=== PATIENT | female | born 1950 | race Caucasian/White ===

== ENCOUNTER → 2017-08-06 14:39 | Outpatient (CLI) | payer MEDICARE, BC, SELFPAY ==
[2017-08-06 14:44] LABS: Lyme Ab Screen Interpretation REF LAB
[2017-08-06 15:49] LABS: Absolute Lymphocyte Count 1.27 X10^3/ul (0.83-4.51); Absolute Neutrophil Count 2.2 X10^3/uL (2.0-7.7); Basophil# 0.02 X10^3/uL; Basophil% 0.5 % (0-1); Eosinophil# 0.05 X10^3/uL; Eosinophils% 1.3 % (0-5); Hematocrit 37.1 % (37-47); Hemoglobin 12.1 g/dl (12.0-15.0); Lymphocyte # 1.27 X10^3/ul (4.0); Lymphocyte % 31.9 % (19-41); Mean Corp Hgb Conc 32.6 g/gl (32-36); Mean Corpuscular Hgb 29.6 pg (27.0-32.0); Mean Corpuscular Volume 90.7 fL (81-99); Monocyte% 10.1 % (0-10); Neutrophil # 2.24 X10^3/uL (2.7-7.7); Neutrophil % 56.2 % (47-70); Platelet Count 126 K/mm3 (150-450); RBC Distribution Width SD 42.7 fl (35.1-43.9); Red Blood Count 4.09 M/mm3 (4.2-5.4)
[2017-08-06 15:50] LABS: POSITIVE COUNT NO; POSITIVE DIFFERENTIAL NO; POSITIVE MORPHOLOGY NO
[2017-08-06 16:09] LABS: Erythrocyte Sedimentation Rate 8 mm/hr (0-30)
[2017-08-06 16:16] LABS: CRP < 2.90 mg/L (0.0-3.0); Ferritin 81 ng/mL (8-252)
[2017-08-07 08:38] LABS: Vitamin B12 408 pg/mL (211-911)
[2017-08-09 09:57] LABS: Lyme Scn Total Ab w/Rflx <0.91 ISR (0.00-0.90)
== END ==
PROVIDERS: Family Provider Family Medicine; PCP Family Medicine; Visit Provider Family Medicine
DX: R20.2 Paresthesia of skin (principal); M79.1 Myalgia
CPT/HCPCS: 36415; 82607; 82728; 83735; 85025; 85652; 86140; 86618

== ENCOUNTER 2017-11-30 00:48 | Emergency (ER) | payer MEDICARE, BC, SELFPAY ==
[2017-11-30 00:49] VITALS: BP 154/78; PULSE 89; RESP 18; TEMP 36.9; O2SAT 98
--- NOTE | 2017-11-30 01:19 | ED.DEP ---
ED Disposition - Plan for ED Patient: Chief Complaint: Lower Extremity Injury Instructions: Total Knee Replacement Referrals: Joe Hollingsworth MD [Primary Care Provider] -
--- NOTE | 2017-11-30 01:30 | ED.VISSUMM ---
- ER Visit Summary Date of Service: 11/30/17 Chief Complaint: Right leg swelling History of Present Illness: The patient is a 67 F presenting with right leg swelling which started today. She had total knee replacement on November 13 at [facility]. She was on Lovenox. She finished this course of medication 3 days ago. Today she noted increasing swelling in her calf. She denies pain. Denies chest pain or shortness of breath. Denies fever. Her knee is healing well. Denies other complaints. Physical Examination: Vitals are stable. Patient is afebrile. Alert no acute distress. HEENT exam is unremarkable. Lungs are clear and equal bilaterally. Heart is regular rate and rhythm. Extremities right knee incision clean dry intact. Active full range of motion. No erythema or warmth. Mild calf swelling. Normal DP/PT pulses. Skin is warm and dry. No focal neurologic deficit. Remainder of exam is unremarkable. Emergency Department Course and Treatment: Venous Doppler is not available at this time of day. Patient was given Lovenox subcutaneously. She was given an order form for an outpatient venous Doppler in the morning. She is advised to follow-up with her primary care physician. Advised return ED if worsening complaints. Disposition: Discharge home Impression: Right lower extremity swelling This note was generated with [employer]akick dictation software. It may contain incorrect words, spelling, and punctuation that were not noted in review of the chart prior to signing ED Disposition - Plan for ED Patient: Chief Complaint: Lower Extremity Injury Instructions: Total Knee Replacement Referrals: Joe Hollingsworth MD [Primary Care Provider] -
--- NOTE | 2017-11-30 01:33 | ED.DCSUM_ITS ---
- ER Visit Summary Date of Service: 11/30/17 Chief Complaint: Right leg swelling History of Present Illness: The patient is a 67 F presenting with right leg swelling which started today. She had total knee replacement on November 13 at [facility]. She was on Lovenox. She finished this course of medication 3 days ago. Today she noted increasing swelling in her calf. She denies pain. Denies chest pain or shortness of breath. Denies fever. Her knee is healing well. Denies other complaints. Physical Examination: Vitals are stable. Patient is afebrile. Alert no acute distress. HEENT exam is unremarkable. Lungs are clear and equal bilaterally. Heart is regular rate and rhythm. Extremities right knee incision clean dry intact. Active full range of motion. No erythema or warmth. Mild calf swelling. Normal DP/PT pulses. Skin is warm and dry. No focal neurologic deficit. Remainder of exam is unremarkable. Emergency Department Course and Treatment: Venous Doppler is not available at this time of day. Patient was given Lovenox subcutaneously. She was given an order form for an outpatient venous Doppler in the morning. She is advised to follow-up with her primary care physician. Advised return ED if worsening compl aints. Disposition: Discharge home Impression: Right lower extremity swelling This note was generated with [employer] dictation software. It may contain incorrect words, spelling, and punctuation that were not noted in review of the chart prior to signing ED Disposition - Plan for ED Patient: Chief Complaint: Lower Extremity Injury Instructions: Total Knee Replacement Referrals: Joe Hollingsworth MD [Primary Care Provider] -
[2017-11-30] MEDS: Enoxaparin 60 MG/0.6 ML Syringe SC (01:39)
[2017-11-30 01:40] VITALS: BP 127/73; PULSE 75; RESP 16; O2SAT 98
== END 2017-11-30 01:45 | disposition home or self-care (01) ==
LOC: ED 01:42
PROVIDERS: Emergency Provider Emergency Medicine; Family Provider Family Medicine; PCP Family Medicine
DX: M79.89 Other specified soft tissue disorders (principal); Z96.651 Presence of right artificial knee joint
CPT/HCPCS: 96372; 99282

== ENCOUNTER → 2017-12-01 13:33 | Outpatient (CLI) | payer MEDICARE, BC, SELFPAY ==
--- NOTE | 2017-12-01 13:39 | VDLE_ITS ---
Reason For Study: LEG SWELLING RIGHT LEFT GSV is normal. CFV is compressible, spontaneous, phasic, CFV is compressible, spontaneous, phasic, competent, and demonstrates normal competent and demonstrates normal augmentation. augmentation. FV is compressible, spontaneous, phasic, competent and demonstrates normal augmentation. POP V is compressible, spontaneous, phasic, competent and demonstrates normal augmentation. T/P Trunk is compressible. PTV is compressible. RT PerV is compressible. Procedure Exam performed in department. A preliminary report was called and/or faxed to Dr. Urena. Interpretation Summary Deep veins of the right lower extremity are patent and compressible segmentally. There is no evidence of right lower extremity deep vein thrombosis. Valvular competence appears intact within the proximal deep venous system on the right . The right greater saphenous vein appears patent and compressible segmentally. Ordering Physician: Tory Wetzel Referring Physician: Kenji Hollingsworth MD Performed By: Kristan Ortiz RVT
== END ==
PROVIDERS: Family Provider Family Medicine; PCP Family Medicine; Referring Provider Emergency Medicine; Visit Provider Emergency Medicine
DX: M79.89 Other specified soft tissue disorders (principal)
CPT/HCPCS: 93971

== ENCOUNTER 2017-12-16 14:00 | Outpatient (RCR) | payer MEDICARE, BC, SELFPAY ==
--- NOTE | 2017-11-24 16:41 | HP.PTEVAL ---
Patient's Visit Information CLARK MEJIA is a 67 year old F referred to Physical Therapy by JAMAAL TOVAR with a diagnosis of R Total Knee Replacement. Date of Evaluation: 11/24/17 Physical Therapist: Carolann Fine - Visit Plan Frequency: 3x /Week Duration: 3 Weeks Plan: Focus on R hip and knee ROM, all LE strength, neuromuscular re-education, correct gait form and negotiating stairs reciprocally. - Subjective Subjective: R TKA 11/13/17 no problems. Been doing HEP including heel slides, quad sets, SLR, knee ext., marching, glute squeezes every day. Low back and butt are sore from sitting. Comfortable sleeping in recliner first couple days. Has been sleeping in bed at night for about a week unless cannot get comfortable. Pain is not as bad has expected. No pain currently a little tightness on both sides of knee, still swollen and a little numb just around knee. Worst 6/10; described as dull and achy. Massage helps, icing, elevating. No longer taking pain medication. Pain does not wake up pt. at night. Using 4 point walker in public and at at home. Using cane for going up and down stairs 8 steps in the house and into the house. Stairs going well, getting faster every day. Every once and awhile feel unsteady so hold on to things. 5 days ago lost balance sitting down to lowered couch, fell back into couch and hit R thigh on frame, found bruise/hematoma on R thigh probably due to blood thinners; did not cause pain. Physician restriction WBAT. Able to cook, but takes breaks. Hasn't cleaned yet. Able to stand about 10 minutes before tired. Shower and dress I. Able to get in and out of SUV I. Very active. Goals: bicycling, hiking, walking long distances, bird watching, gardening. No signficant PMH. No daily medications. Occasionally take Asprin for arthritis; yoga and aquatherapy. - Objective Gait: with 4 point walker decreased kaden; with 4 wheeled walker able to increase kaden to near normal, R toe pointed inward, decreased knee flex., decreased heel rocker. Posture: Forward trunk flexion when walking unless reminded. Stairs: ascend/descend step to pattern with 1 HR and single point cane. AROM: LLE WNL, R knee flex with overpressure 97 degreees, R knee ext. with overpressure lack 19 degrees from neutral. Able to heel and toe raise without UE. Balance: 15 seconds SL on L, 7 seconds modified SL on R. Strength: L hip flex. and ext. 4+/5, L knee and ankle 5/5, R ankle 4/5; did not test R hip/knee due to ROM limitations and pain. Palation: no areas of tenderness. Incision: steri strips covering incision; no signs of infection, mild swelling and ecchymosis present. - Goals Goal 1:: Pt. will be I with HEP and progressions. Goal Time Frame: 2-4 Weeks Goal 2:: Pt. will increase R knee extension to 0 degrees. Goal Time Frame: 4-6 Weeks Goal 3:: Pt. will increase R knee flexion to 130 degrees. Goal Time Frame: 4-6 Weeks Goal 4:: Pt. will ambulate 300' with good form and no assistive device. Goal Time Frame: 4-6 Weeks Goal 5:: Pt. will negotiate 1 flight of 8'' stairs reciprocally using 1 or less hand rail and no assistive device. Goal Time Frame: 4-6 Weeks Goal 6:: Pt. will demonstrate R hip and knee strength to at least 4/5. Goal Time Frame: 4-6 Weeks - Rehabilitation Potential Physical Therapy Diagnosis: Pt. presents with hypomobility. Decreased hip and knee ROM and strength in addition to soft tissue limitations from surgery limiting pt. from full pain free functional mobility and activity without an assistive device. Rehabilitation Potential: Excellent - Anticipated Interventions Patient/Client Instruction: Educate patient on: Condition For the Purpose of:: To decrease swelling/inflammation, To increase ROM, To improve muscle performance and motor function, To improve ability to perform ADL's, To improve gait and locomotor functions, To increase flexibility/ROM, To improve endurance, To improve balance, To improve safety with gait Therapeutic Exercise to Include: Strength training, Power training, Endurance training, Balance training, Coordination, Agility training, Body mechanics, Postural training, Flexibilty training, Gait and locomotor training, Passive ROM, Active ROM For the Purpose of:: To decrease swelling/inflammation, To increase ROM, To improve nutrient delivery to tissue, To improve ability to perform ADL's, To increase tolerance to activity/condition/position, To improve performance and independence with ADL's, To improve gait and locomotor functions, To increase flexibility/ROM, To improve endurance, To improve balance, To improve safety with gait, To assume or resume ADL's Functional electric stimulation: Yes TENS: Yes Cryotherapy (ice pack, ice massage): Yes Thermo therapy (hot pack): Yes Ultrasound (thermal/non thermal): No For the Purpose of:: To decrease pain, To improve nutrient delivery to tissue, To improve muscle performance and motor function Thank you for the opportunity to evaluate your patient. For Medicare and Medicare HMO plans, please review the plan of care and approve it. It will need to be FAXED BACK to us at [phone] for Medicare purposes. Please let me know if there are questions or concerns regarding this plan of care. Physician Signature: Date:
--- NOTE | 2017-12-16 14:33 | HP.PTREVAL_ITS ---
JAMAAL TOVAR, It has been my pleasure to treat CLARK MEJIA over the last 10 visits for R Total Knee Replacement. Please see the progress note below for an update on the physical therapy plan of care! Subjective: The knee feels like its on hold secondary to the sciatica. its been bad for about 2 weeks- has been doing chiro and stretching. Feels that the leg is just really stiff and cramping. Yesterday and today feel like things are more loosening up. Is getting more feeling. Is trying to stay on top of the exercises. Objective/Function: Gait: slightly antalgic with decreased stance on the right le with poor heel strike secondary to ROM. Posture:FH, RS- can correct with VC's Stairs: asc/desc 8 recip with 1 HR- mild circumduction on the right with desc AROM: 0-104 degrees Able to heel and toe raise without UE. Balance: 15 seconds SL on L, 7 seconds on right Strength:4+/5 throughour right LE Palation: no areas of tenderness. Incision: well healed Plan Plan: Hold- will attempt I HEP with Yoga and aquasize. Goals Goal 1:: Pt. will be I with HEP and progressions. Goal Time Frame: 2-4 Weeks Goal Progress: Progressing Goal 2:: Pt. will increase R knee extension to 0 degrees. Goal Time Frame: 4-6 Weeks Goal Progress: Progressing Goal 3:: Pt. will increase R knee flexion to 130 degrees. Goal Time Frame: 4-6 Weeks Goal Progress: Progressing Goal 4:: Pt. will ambulate 300' with good form and no assistive device. Goal Time Frame: 4-6 Weeks Goal Progress: Progressing Goal 5:: Pt. will negotiate 1 flight of 8'' stairs reciprocally using 1 or less hand rail and no assistive device. Goal Time Frame: 4-6 Weeks Goal Progress: Progressing Goal 6:: Pt. will demonstrate R hip and knee strength to at least 4/5. Goal Time Frame: 4-6 Weeks Anticipated Interventions Patient/Client Instruction: Educate patient on: Condition For the Purpose of:: To decrease swelling/inflammation, To increase ROM, To improve muscle performance and motor function, To improve ability to perform ADL's, To improve gait and locomotor functions, To increase flexibility/ROM, To improve endurance, To improve balance, To improve safety with gait Therapeutic Exercise to Include: Strength training, Power training, Endurance training, Balance training, Coordination, Agility training, Body mechanics, Postural training, Flexibilty training, Gait and locomotor training, Passive ROM, Active ROM For the Purpose of:: To decrease swelling/inflammation, To increase ROM, To improve nutrient delivery to tissue, To improve ability to perform ADL's, To increase tolerance to activity/condition/position, To improve performance and independence with ADL's, To improve gait and locomotor functions, To increase flexibility/ROM, To improve endurance, To improve balance, To improve safety with gait, To assume or resume ADL's Functional electric stimulation: Yes TENS: Yes Cryotherapy (ice pack, ice massage): Yes Thermo therapy (hot pack): Yes Ultrasound (thermal/non thermal): No For the Purpose of:: To decrease pain, To improve nutrient delivery to tissue, To improve muscle performance and motor function Please do not hesitate to contact me at [phone] by phone or Fax: if you have questions or concerns regarding this new plan of care! Sincerely, Carolann Fine
== END 2017-12-16 19:00 | disposition home or self-care (01) ==
LOC: PT 14:00
PROVIDERS: Family Provider Family Medicine; PCP Family Medicine
DX: M17.11 Unilateral primary osteoarthritis, right knee (principal)
CPT/HCPCS: 97110; 97161; 97164

== ENCOUNTER → 2017-12-18 14:56 | Outpatient (CLI) | payer MEDICARE, BC, SELFPAY ==
--- NOTE | 2017-12-18 15:00 | BI_ITS ---
MAMMOGRAPHY - BILATERAL SCREENING REASON FOR EXAM: Female, 67 years old. Routine annual screening examination. PERTINENT HISTORY: Non-contributory. TECHNIQUE: Digital bilateral breast efren (3D mammographic acquisition) in the CC and MLO projections. 2-D mediolateral oblique (MLO) and craniocaudad (CC) views of both breasts were obtained. CAD: Full Field Digital Mammography with Computer Added Detection was performed. COMPARISON: Comparison is made with prior examination dated August 28, 2016. FINDINGS: Breast Composition: The breasts are extremely dense, which lowers the sensitivity of mammography. There are no dominant masses or suspicious calcifications. No other significant abnormalities are identified. There has been no significant change since the prior study. BI/SCREENING MAMM (CAD), BILAT IMPRESSION: Stable bilateral screening mammogram. Yearly follow-up mammogram recommended. (A) ASSESSMENT CATEGORY: BIRADS Category 1: Negative. A letter regarding these results will be sent to the patient by the facility within 30 days. Approximately 10% of breast cancers are not detected by mammography. A normal mammogram should not delay biopsy of a clinically suspicious abnormality. [id number] Electronically Signed: Darin Stephenson MD at 16:06 EST Tel [phone], Service support ,
== END ==
PROVIDERS: Family Provider Family Medicine; PCP Family Medicine; Referring Provider Nurse Practitioner Women's Health; Visit Provider Nurse Practitioner Women's Health
DX: Z12.31 Encounter for screening mammogram for malignant neoplasm of breast (principal)
CPT/HCPCS: 77063; 77067

== ENCOUNTER 2018-09-06 10:35 | Observation (INO) | payer MEDICARE, BC, SELFPAY ==
[2018-06-30 10:38] VITALS: BMI 18.8
[2018-09-06] VITALS (12 sets, daily range): BP systolic 113–154; BP diastolic 63–87; PULSE 61–73; RESP 12–18; TEMP 36.9–37.1; O2SAT 97–100; BMI 20.2
--- NOTE | 2018-09-06 10:52 | EKG12_ITS ---
Test Reason : DIZZINESS Blood Pressure : / mmHG Vent. Rate : 063 BPM Atrial Rate : 063 BPM P-R Int : 150 ms QRS Dur : 072 ms QT Int : 418 ms P-R-T Axes : 077 028 059 degrees QTc Int : 427 ms Normal sinus rhythm Normal ECG Confirmed by JOSÉ CERVANTES, DARLEEN ([id number]), publishing editor VIKTOR SHAY ([id number]) on 09/08/2018 10:44:49 AM Referred By: Rodolfo Alexander Confirmed By:DARLEEN KUMAR MD
--- NOTE | 2018-09-06 10:52 | CT_ITS ---
STUDY: CT BRAIN WITHOUT CONTRAST REASON FOR EXAM: Female, 68 years old. Vertigo. Dizziness. RADIATION DOSAGE (If Supplied By Facility): CTDIvol = ( 44.99 ) mGy, DLP = ( 745.49 ) mGycm TECHNIQUE: Transaxial CT imaging of the brain was performed without administration of intravenous contrast material. Individualized dose optimization techniques were used for this CT. COMPARISON: No relevant priors. FINDINGS: Normal soft tissue structures. Normal calvarium. Normal size ventricles and extra-axial spaces for the patient's age. Normal white matter tracts of the cerebral hemispheres. Normal basal ganglia and thalami. Normal brainstem. Normal cerebellum. There is no intracranial hemorrhage. There are no findings of an acute ischemic infarction. Normal visualized paranasal sinuses. CT/Brain/Head without Contrast IMPRESSION: Normal unenhanced CT scan of the brain. Electronically Signed: Darin Stephenson, at 12:20 EDT , Service support ,
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
[2018-09-06 11:23] LABS: Absolute Lymphocyte Count 1.01 X10^3/uL (0.83-4.51); Absolute Neutrophil Count 1.5 X10^3/uL (2.0-7.7); Basophil# 0.03 X10^3/uL; Eosinophil# 0.11 X10^3/uL; Eosinophils% 3.7 % (0-5); Hematocrit 35.3 % (37-47); Hemoglobin 11.2 g/dL (12.0-15.0); Lymphocyte # 1.01 X10^3/ul (4.0); Lymphocyte % 34.1 % (19-41); Mean Corp Hgb Conc 31.7 g/dL (32-36); Mean Corpuscular Hgb 28.8 pg (27.0-32.0); Mean Corpuscular Volume 90.7 fL (81-99); Mean Platelet Vol. 9.1 fl (6.2-12.0); Monocyte# 0.36 X10^3/uL; Monocyte% 12.2 % (0-10); NRBC Flagged by Analyzer 0 % (0-5); Neutrophil # 1.45 X10^3/uL (2.7-7.7); Platelet Count 148 K/mm3 (150-450); RBC Distribution Width SD 42.5 fl (35.1-43.9); Red Blood Count 3.89 M/mm3 (4.2-5.4)
[2018-09-06 11:26] LABS: Anion Gap 5 (5-15); BUN 17 mg/dL (7-18); BUN/Creat Ratio 21.4 RATIO (10-20); Calcium,Total 8.8 mg/dL (8.5-10.1); Chloride 107 mmol/L (98-107); EST Glomerular Filtration Rate 76 mL/min (>60); Est Glom Filt Rate - Afr Amer 92 mL/min (>60); Estimated Creatinine Clearance 61.69 ml/min; Glucose 97 mg/dL (74-106); Potassium 3.7 mmol/L (3.5-5.1); Sodium Level 140 mmol/L (136-145)
[2018-09-06 11:34] LABS: International Normalized Ratio 1.1; Prothrombin Time (Protime)PT. 13.8 SECONDS (11.7-14.9)
[2018-09-06 11:35] LABS: Partial Thromboplast Time 30.4 Seconds (24.1-36.2)
--- NOTE | 2018-09-06 11:38 | RAD_ITS ---
STUDY: X-RAY CHEST REASON FOR EXAM: Female, 68 years old. Dizziness. Tachycardia. TECHNIQUE: Single AP portable view of the chest. COMPARISON: Comparison is made with prior study dated November 26, 2013. FINDINGS: EKG electrodes are seen. Hyperinflation. Stable increased markings at the lung apices suggesting scarring. Normal size heart. Normal mediastinum and shanda. Normal visualized pulmonary arteries. Normal visualized aortic arch and descending thoracic aorta. There are degenerative changes of the visualized thoracic spine. Normal visualized ribs, clavicles, and shoulders. There is no demonstrated abnormality of the visualized soft tissue structures of the upper abdomen. RAD/Chest 1 View IMPRESSION: Hyperinflation. Stable scarring at the lung apices. Electronically Signed: Darin Stephenson, at 12:21 EDT , Service support ,
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
--- NOTE | 2018-09-06 13:57 | CT_ITS ---
STUDY: CTA HEAD AND NECK WITH CONTRAST REASON FOR EXAM: Female, 68 years old. Stroke RADIATION DOSAGE (If Supplied By Facility): CTDIvol = ( 17.76 ) mGy, DLP = ( 576.84 ) mGycm TECHNIQUE: CT angiography was performed with a multi-detector CT scanner. Data acquisition was obtained from the skull base through the vertex following intravenous administration of 100 IV Isovue 370. MIP images were reconstructed from the axial data set. Post-processing of the angiographic images was performed, with multiplanar reformation and 3D reconstruction. Individualized dose optimization techniques were used for this CT. COMPARISON: MRI and CT of the brain on September 06, 2018 FINDINGS: Normal bilateral petrous carotid arteries. Normal right cavernous carotid artery with a normal supraclinoid bifurcation. Normal left cavernous carotid artery with a normal supraclinoid bifurcation. Normal right A1 segments of the anterior cerebral artery. Normal left A1 segments of the anterior cerebral artery. Anterior communicating artery not visualized consistent with normal variant. Normal bilateral A2 segments of the anterior cerebral arteries. Normal right M1 and M2 segments of the middle cerebral arteries, with a normal M1 bifurcation. Normal left M1 and M2 segments of the middle cerebral arteries, with a normal M1 bifurcation. Posterior communicating arteries are not visualized consistent with normal variant. Left vertebral normal caliber. Diffuse narrowing of the distal right vertebral Normal basilar artery with a normal basilar bifurcation. The visualized bilateral superior cerebellar (SCA) arteries are normal. Normal bilateral P1, P2 and visualized P3 segments of the posterior cerebral arteries. There is no demonstrated aneurysm of the [place] of [place]. There is no demonstrated abnormality of the visualized brain. AORTIC ARCH: Normal visualized aortic arch. Normal origins of the brachiocephalic, left common carotid, and left subclavian arteries. RIGHT CAROTID ARTERIES: Normal right common carotid artery (CCA). Normal right common carotid bulb. Normal origin of the right internal carotid (ICA) artery without a hemodynamically significant stenosis. Normal visualized cervical portion of the right internal carotid artery. Normal origin of the right external carotid artery (ECA). LEFT CAROTID ARTERIES: Normal left common carotid artery (CCA). Normal left common carotid bulb. Normal origin of the left internal carotid (ICA) artery without a hemodynamically significant stenosis. Normal visualized cervical portion of the left internal carotid artery. Normal origin of the left external carotid artery (ECA). VERTEBRAL ARTERIES: Left vertebral is normal caliber. There is narrowing of the distal right vertebral. CT/CTA Head AND Neck W/ Contrast IMPRESSION: No evidence for hemodynamically significant stenosis within the brain or neck utilizing NASCET criteria Electronically Signed: Jah Grover MD at 16:54 EDT , Service support ,
--- NOTE | 2018-09-06 13:57 | MRI_ITS ---
STUDY: MRI BRAIN WITHOUT CONTRAST REASON FOR EXAM: Female, 68 years old. Dizziness TECHNIQUE: Standardized multiplanar fat and water weighted pulse sequences were obtained. COMPARISON: CT of the brain on September 06, 2018 MRI of the brain on June 23, 2008 FINDINGS: Normal size of the ventricles and extra-axial spaces for the patient's age. Normal white matter tracts of the supratentorial brain. Normal bilateral basal ganglia. Normal thalami. There is no extra-axial fluid accumulation. Normal flow voids within the major intracranial circulation suggesting patency by spin echo criteria. Normal sella turcica, pituitary gland, infundibular stalk, optic chiasm and hypothalamus. Normal tectal plate and pineal gland. Normal midbrain, geni and medulla. Normal cerebellum. Normal basal cisterns. Normal bilateral temporal bones. Normal bilateral internal auditory canals. No demonstrated orbital abnormality, within the constraints of a routine brain study. Normal visualized paranasal sinuses. Normal calvarium and skull base. Normal visualized soft tissue structures. Normal visualized upper cervical spine. No significant change since prior exam MRI/Brain without Contrast IMPRESSION: Normal unenhanced MRI of the brain. Electronically Signed: Jah Grover MD at 16:09 EDT , Service support ,
[2018-09-07] VITALS (9 sets, daily range): BP systolic 103–137; BP diastolic 67–72; PULSE 60–77; RESP 14–16; TEMP 36.6–37.2; O2SAT 96–100; BMI 20.2
[2018-09-07 06:59] LABS: Absolute Lymphocyte Count 1.51 X10^3/uL (0.83-4.51); Absolute Neutrophil Count 1.8 X10^3/uL (2.0-7.7); Basophil# 0.03 X10^3/uL; Basophil% 0.8 % (0-1); Eosinophil# 0.09 X10^3/uL; Eosinophils% 2.4 % (0-5); Hematocrit 33.1 % (37-47); Hemoglobin 10.9 g/dL (12.0-15.0); Lymphocyte # 1.51 X10^3/ul (4.0); Lymphocyte % 39.8 % (19-41); Mean Corp Hgb Conc 32.9 g/dL (32-36); Mean Corpuscular Hgb 29.7 pg (27.0-32.0); Mean Corpuscular Volume 90.2 fL (81-99); Mean Platelet Vol. 9.3 fl (6.2-12.0); Monocyte# 0.39 X10^3/uL; Monocyte% 10.3 % (0-10); NRBC Flagged by Analyzer 0 % (0-5); Neutrophil # 1.76 X10^3/uL (2.7-7.7); Neutrophil % 46.4 % (47-70); Platelet Count 146 K/mm3 (150-450); RBC Distribution Width CV 12.9 % (11.6-14.6); RBC Distribution Width SD 42.6 fl (35.1-43.9); Red Blood Count 3.67 M/mm3 (4.2-5.4); White Blood Count 3.8 K/mm3 (4.4-11.0)
[2018-09-07 07:20] LABS: Anion Gap 8 (5-15); BUN 17 mg/dL (7-18); Calcium,Total 8.7 mg/dL (8.5-10.1); Chloride 108 mmol/L (98-107); Cholesterol 168 mg/dL (200); Creatinine, Serum 0.77 mg/dL (0.55-1.02); EST Glomerular Filtration Rate 79 mL/min (>60); Est Glom Filt Rate - Afr Amer 96 mL/min (>60); Estimated Creatinine Clearance 49.81 ml/min; Glucose 86 mg/dL (74-106); High Density Lipoprotein 54 mg/dL; Potassium 3.8 mmol/L (3.5-5.1); Sodium Level 143 mmol/L (136-145); Triglycerides 82 mg/dL; Very Low Density Lipoprotein 16 mg/dL (5-40)
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
--- NOTE | 2018-09-07 11:58 | MRI_ITS ---
STUDY: MRI CERVICAL SPINE WITHOUT CONTRAST REASON FOR EXAM: Female, 68 years old. Dizziness TECHNIQUE: Standardized fat and water weighted pulse sequences were obtained in the sagittal and axial planes. COMPARISON: None FINDINGS: Normal foramen magnum and brainstem-cervical cord junction. Normal craniovertebral junction. Normal anterior atlantoaxial articulation. Normal odontoid process. Normal cervical lordosis. Normal vertebral bodies and posterior osseous elements. C2-3: Normal endplates. Normal disc height, signal and morphology. Normal central canal and intervertebral neural foramina. C3-4: Normal endplates. Normal disc height, desiccation and mild bulging disc osteophyte complex.. Mild narrowing of central canal. Mild right neuroforaminal stenosis and moderate to severe narrowing on the left secondary to bony hypertrophy C4-5: Narrowed disc space with small left paracentral/osteophyte disc protrusion. Mild narrowing of the the central canal and impingement upon the ventral surface of the cord to the left of the midline. Mild right neuroforaminal stenosis and moderate to severe narrowing on the left secondary to bony hypertrophy C5-6: Normal endplates. Normal disc height, signal and morphology. Normal central canal and intervertebral neural foramina. C6-7: Grade 1 spondylolisthesis. Narrowed disc space and minor bulging disc osteophyte complex.. Normal central canal and intervertebral neural foramina. C7-T1: Normal endplates. Normal disc height, signal and morphology. Normal central canal and intervertebral neural foramina. Normal cervical cord. Normal visualized soft tissue structures. MRI/Spine Cervical (Routine) IMPRESSION: No evidence for acute fracture or other significant bony pathology. Moderate spondylosis Spinal stenosis at C3-4 and C4-5 secondary to disc disease and bony hypertrophy with findings as above. Electronically Signed: Jah Grover MD at 15:53 EDT , Service support ,
--- NOTE | 2018-09-07 12:09 | ECHOD_ITS ---
Reason For Study: dizziness Procedure This was a 2D Doppler, Color Flow transthoracic echocardiogram. The study was technically difficult. Exam performed portable in patient room. Left Ventricle Normal LV size. Left ventricular systolic function is normal. The estimated ejection fraction is 65 %. No evidence for diastolic dysfunction. No regional wall motion abnormalities noted. Right Ventricle Normal RV size. Normal systolic function. Atria Normal left atrium. Normal right atrium. No doppler evidence for ASD. Mitral Valve There is no mitral annular calcification. Mild diffuse mitral valve thickening. Equivocal mitral valve prolapse. Trivial mitral valve insufficiency. Tricuspid Valve Normal tricuspid valve. Mild tricuspid valve insufficiency. Right ventricular systolic pressure estimated to be 23 mmHg. Aortic Valve Trisinus/trileaflet aortic valve. Normal aortic valve. Pulmonic Valve The pulmonic valve is not well visualized. Mild (1+) pulmonic valve insufficiency. Great Vessels Normal sized aortic root. Pericardium/Pleural No pericardial effusion. MMode/2D Measurements & Calculations LVIDd: 4.4 cm IVSd: 0.87 cm Ao root diam: 3.2 cm LVIDs: 3.1 cm LVPWd: 0.88 cm RVDd: 3.3 cm FS: 30.8 % LAV(MOD-bp): 29.9 ml LA A4 area: 11.9 cm2 LA dimension(2D): 2.9 cm LAV(MOD-bp) Indexed: 17.8 ml/m2 LAV(MOD-sp2): 27.3 ml LAV(MOD-sp4): 31.1 ml RA A4 area: 10.8 cm2 Time Measurements MV dec time: 0.22 sec Doppler Measurements & Calculations MV E max slick: 80.8 cm/sec Lat Peak E' Slick: 8.2 cm/sec Med Peak E' Slick: 7.8 cm/sec MV A max slick: 65.7 cm/sec E/E' lat: 9.9 E/E' med: 10.4 MV E/A: 1.2 Ao V2 max: 107.0 cm/sec LV V1 max: 89.9 cm/sec PA V2 max: 80.9 cm/sec Ao max P.6 mmHg LV V1 max P.2 mmHg TR max slick: 224.6 cm/sec TR max P.3 mmHg Interpretation Summary The study was technically difficult. Left ventricular systolic function is normal. The estimated ejection fraction is 65 %. Equivocal mitral valve prolapse. Mild diffuse mitral valve thickening. Trivial mitral valve insufficiency. Mild tricuspid valve insufficiency. Mild (1+) pulmonic valve insufficiency. Right ventricular systolic pressure estimated to be 23 mmHg. No evidence for diastolic dysfunction. Ordering Physician: Sue Huffman Referring Physician: Kenji Hollingsworth/rei Alexander Performed By: Scarlet Chappell, HAMZAH, RVT
--- NOTE | 2018-09-07 16:51 | DCINST_ITS ---
- Discharge Diagnoses Current Active Problems: Current Active and Chronic Problems (Last Reviewed 09/06/18 @ 13:20 by Rodolfo Alexander MD) Dizziness (Acute) Osteoarthritis (Chronic) Elevated blood pressure reading (Acute) You will use the following diet at home:: No restrictions Allergies/Adverse Reactions: Allergies codeine Allergy (Mild, Verified 09/06/18 10:40) Hives Medications to take at Discharge NK 09/06/18 Primary Care Physician: Joe Hollingsworth MD [Primary Care Provider] - Please follow up with your Primary Care Physician in: IN 5-7 DAYS Test Results: Test results from this visit will be discussed in further detail at your follow- up appointment, if applicable. Please Follow Up With: Sue Huffman MD When: IN 1-2 WEEKS Proposed Discharge Date: 09/07/18
--- NOTE | 2018-09-07 16:52 | DS.PCM_ITS ---
Discharge Date and Diagnosis - Problem List Patient Problems: Active and Suspected Problems (Last Reviewed 09/06/18 @ 13:20 by Rodolfo Alexander MD) Dizziness (Acute) Elevated blood pressure reading (Acute) Date of Admission: 09/06/18 Date of Discharge: 09/07/18 - Primary Discharge Diagnosis Active and Suspected Problems (Last Reviewed 09/06/18 @ 13:20 by Rodolfo Alexander MD) Dizziness (Acute) Elevated blood pressure reading (Acute) - Secondary Discharge Diagnosis Chronic Problems (Last Reviewed 09/06/18 @ 13:20 by Rodolfo Alexander MD) Osteoarthritis (Chronic) Segmental and somatic dysfunction of pelvic region (Chronic) Thoracogenic scoliosis of thoracolumbar region (Chronic) Segmental and somatic dysfunction of lumbar region (Chronic) Segmental and somatic dysfunction of cervical region (Chronic) Scoliosis (Chronic) Segmental and somatic dysfunction of thoracic region (Chronic) Hospital Course and Treatment Imaging Results: 09/07/18 11:58 MRI Cervical [Spine Cervical (Routine)] [MRI] Routine 09/07/18 12:09 Echo Complete [ECHO] Routine Clinical Impression(s) from Imaging Studies Brain CT 09/06/18 10:52 IMPRESSION: Normal unenhanced CT scan of the brain. Electronically Signed: Darin Stephenson, at 12:20 EDT , Service support , Chest X-Ray 09/06/18 11:38 IMPRESSION: Hyperinflation. Stable scarring at the lung apices. Electronically Signed: Darin Stephenson, at 12:21 EDT , Service support , Brain MRI 09/06/18 13:57 IMPRESSION: Normal unenhanced MRI of the brain. Electronically Signed: Jah Grover MD at 16:09 EDT , Service support , Head/Neck CTA 09/06/18 13:57 IMPRESSION: No evidence for hemodynamically significant stenosis within the brain or neck utilizing NASCET criteria Electronically Signed: Jah Grover MD at 16:54 EDT , Service support , Cervical Spine MRI 09/07/18 11:58 IMPRESSION: No evidence for acute fracture or other significant bony pathology. Moderate spondylosis Spinal stenosis at C3-4 and C4-5 secondary to disc disease and bony hypertrophy with findings as above. Electronically Signed: Jah Grover MD at 15:53 EDT , Service support , Summary of Care Provided: Patient is a 68-year-old lady presented with dizziness 1. Acute dizziness: Patient has been admitted to monitored bed for further management. Differential diagnosis at this point include BPPV versus posterior circulation CVA, patient was placed on every 4 neurochecks ordered CTA of the head and neck as well as MRI of the brain and consultation placed to physical therapy outpatient therapy as well as neurology. Patient MRI was negative for acute CVA was seen in consultation by neurology Dr. Huffman is noted recommendations reviewed plans for patient to follow-up with Dr. Huffman as outpatient as well as her primary care physician Dr. Grigsby 2. Elevated blood pressure patient is not a known hypertensive we will continue to monitor and initiate antihypertensive medications if warranted 3. Generalized osteoarthritis 4. Recent right total knee replacement 5. DVT prophylaxis SC Lovenox Patient Problems: Active and Suspected Problems (Last Reviewed 09/06/18 @ 13:20 by Rodolfo Alexander MD) Dizziness (Acute) Elevated blood pressure reading (Acute) Objective: GENERAL: cooperative HEENT: Atraumatic; EYES; Anicteric, N NECK; supple, normal thyroid, RESPIRATORY: Diminished to auscultation CARDIOVASCULAR: Regular S1 S2, GI: soft, non-tender, normoactive bowel sounds, : No Renal angle tenderness; NEURO: Awake; SKIN: No Rash PSYCH; Normal affect - Physical Exam Vital Signs Temp Pulse Resp BP Pulse Ox 98.4 F 64 15 103/67 98 09/07/18 14:00 09/07/18 14:00 09/07/18 14:00 09/07/18 14:00 09/07/18 14:00 Oxygen Delivery Method Room Air Weight: 58.6 kg Body Mass Index (BMI) 20.2 Intake and Output for Last 24 Hours 09/05/18 09/06/18 09/07/18 23:59 23:59 23:59 Intake Total 1000 / 1000 860 / 860 Balance 1000 / 1000 860 / 860 Laboratory Tests Past 24 Hrs 09/06/18 09/06/18 09/07/18 14:09 17:15 06:00 WBC 3.8 L RBC 3.67 L Hgb 10.9 L Hct 33.1 L MCV 90.2 MCH 29.7 MCHC 32.9 RDW Std Deviation 42.6 RDW Coeff of Adry 12.9 Plt Count 146 L MPV 9.3 Immature Gran % (Auto) 0.300 Neut % (Auto) 46.4 L Lymph % (Auto) 39.8 [place] % (Auto) 10.3 H Eos % (Auto) 2.4 Baso % (Auto) 0.8 Absolute Neuts (auto) 1.8 L Absolute Lymphs (auto) 1.51 Nucleated RBC % 0 Sodium Potassium Chloride Carbon Dioxide Anion Gap BUN Creatinine Estim Creat Clear Calc Est GFR (MDRD) Af Amer Est GFR (MDRD) Non-Af BUN/Creatinine Ratio Glucose Calcium Troponin I Cancelled < 0.015 Triglycerides Cholesterol LDL Cholesterol VLDL Cholesterol HDL Cholesterol 09/07/18 06:00 WBC RBC Hgb Hct MCV MCH MCHC RDW Std Deviation RDW Coeff of Adry Plt Count MPV Immature Gran % (Auto) Neut % (Auto) Lymph % (Auto) [place] % (Auto) Eos % (Auto) Baso % (Auto) Absolute Neuts (auto) Absolute Lymphs (auto) Nucleated RBC % Sodium 143 Potassium 3.8 Chloride 108 H Carbon Dioxide 27.0 Anion Gap 8 BUN 17 Creatinine 0.77 Estim Creat Clear Calc 49.81 Est GFR (MDRD) Af Amer 96 Est GFR (MDRD) Non-Af 79 BUN/Creatinine Ratio 22.0 H Glucose 86 Calcium 8.7 Troponin I Triglycerides 82 Cholesterol 168 LDL Cholesterol 98 VLDL Cholesterol 16 HDL Cholesterol 54 Discharge Diet: No Restrictions Home Medications: Medications to take at Discharge NK 09/06/18 Primary Care Physician: Joe Hollingsworth MD [Primary Care Provider] - Please follow up with your Primary Care Physician in: IN 5-7 DAYS Please Follow Up With: Sue Huffman MD When: IN 1-2 WEEKS Disposition: Home Minutes spent on discharge:: 35 Patient Condition:: Stable Medical Necessity - Tobacco Use Smoking Status: Never smoker Meaningful Use Info Meaningful Use Diagnoses (Choose all that apply): None applicable Code Visit OBSV E&M: 42421 Observation care discharge
== END 2018-09-07 16:51 | disposition home or self-care (01) ==
LOC: ED 11:05 → PCU 13:22
PROVIDERS: Admitting Provider Internal Medicine; Emergency Provider Emergency Medicine; Family Provider Family Medicine; PCP Family Medicine; Referring Provider Internal Medicine; Visit Provider Internal Medicine
DX: R42 Dizziness and giddiness (principal); R29.700 NIHSS score 0; M99.05 Segmental and somatic dysfunction of pelvic region; R03.0 Elevated blood-pressure reading, without diagnosis of hypertension; M99.01 Segmental and somatic dysfunction of cervical region; M99.03 Segmental and somatic dysfunction of lumbar region; M99.02 Segmental and somatic dysfunction of thoracic region; M41.35 Thoracogenic scoliosis, thoracolumbar region; M15.9 Polyosteoarthritis, unspecified; I08.1 Rheumatic disorders of both mitral and tricuspid valves
CPT/HCPCS: 36415; 70450; 70496; 70498; 70551; 71045; 72141; 80048; 80061; 84484; 85025; 85610; 85730; 93005; 93306; 94762; 97162; 97166; 99218; 99285; Q9957; Q9967; A4216; G0378

== ENCOUNTER 2018-10-27 16:00 | Outpatient (RCR) | payer MEDICARE, BC, SELFPAY ==
--- NOTE | 2018-09-28 17:39 | HP.PTEVAL ---
Patient's Visit Information CLARK MEJIA is a 68 year old F referred to Physical Therapy by TOÑO Alvarez with a diagnosis of vertigo. Date of Evaluation: 09/28/18 Physical Therapist: Pj Carrizales DPT, OCS, CSCS - Visit Plan Frequency: 1-2x /Week Duration: 4-6 Weeks Plan: 1-2x/week as needed for positional initially then Neurocom wehn negative positional and check LE neuro. - Subjective Findings: Having out of balance dizzy spells since March. Thought it was infection at first. Went to doctor and given antibiotics adn they did not help. It kept getting worse through the spring. Walked like an old person adn shufling. Not comfortable stepping over in garden due to poor balance. Went to ER at one point with rapid heart beat and racing heart and very dizzy. Did many tests in hospital and thought BPPV. R/O stroke adn heart problems. Will have tests done to see if neuropathy. That hospital stay was 09/06/18. Did Beto maneuver in the hospital and sometimes at home and it seems to help. Doesn't still feel assured of balance. Not much dizzyness lately but still unsteady. No dizzyness lately unless turns head too fast. Bending and standing gave dizzyness but that is much better now. Sleep is OK. Not employed. Basic ADLs are Ok. Hobbies include gardening which she does slowly. Bicycling which she avoids. - Objective Walks normal and transfers normal. c/s aROM WFL and without pain today. - R hallpike alice. + L hallpike alice and reated wtih L beto and then negative. - Balance Scores Functional Gait Assessment Score: 29 % Disability: 3.3400 CATSIB Score (Max score 120 seconds): 110 - Goals Goal 1:: abolish vertigo with movement of head. Goal Time Frame: 2-4 Weeks Goal 2:: Pt feel 100% back to normal Goal Time Frame: 2-4 Weeks Goal 3:: Computerized balance assessment. Goal Time Frame: 2-4 Weeks - Rehabilitation Potential Physical Therapy Diagnosis: BPPV Rehabilitation Potential: Fair - Anticipated Interventions Patient/Client Instruction: Educate patient on: Condition, Plan of Care For the Purpose of:: To increase tolerance to activity/condition/position, To improve balance, To improve safety with gait Therapeutic Exercise to Include: Balance training Comment: positional treatments For the Purpose of:: To increase tolerance to activity/condition/position, To improve gait and locomotor functions, To improve balance, To assume or resume ADL's, To improve safety Thank you for the opportunity to evaluate your patient. For Medicare and Medicare HMO plans, please review the plan of care and approve it. It will need to be FAXED BACK to us at [phone] for Medicare purposes. For Medicare only, by signing this I certify the plan of care. Please let me know if there are questions or concerns regarding this plan of care. Physician Signature: Date:
--- NOTE | 2018-12-27 17:31 | HP.PTDCSUM_ITS ---
HP - PT D/C Summary It has been my pleasure to treat CLARK MEJIA under orders from Lilibeth Mcnally, TOÑO, for the diagnosis of vertigo for a total of 4 visit(s). Discharge Date: 10/27/18 Please see the following information for a summary of their discharge status. - Subjective Subjective: Doing well. SAW ENT Thursday and thinks that she has some back proprioceptive problems. Will see ortho next month. Vacation was wonderful to [place] adn no problems with dizzyness. Drove 2000 miles without difficulty. Hiked alot and no problems. Used walking stick without difficulty.Will have NCT to ensure no neuropathy. - Overall Improvement % Improvement: 98 - Objective Objective/Function: - B hallpike. - roll test. good balance walking in and 180 degree turns without a problem or symptoms. Doing wonderful today. No comp uterized balance test given due to acing the FGA after fixing her positional vertigo. - Goals Goal 1:: abolish vertigo with movement of head. Goal Progress: Goal Met Goal 2:: Pt feel 100% back to normal Goal Progress: Progressing Goal 3:: Computerized balance assessment. Goal Progress: n/a - Plan Plan: d/c - D/C Information Discharge Comments: Doing well and will contact doctor if dizzyness returns. If there are questions or concerns regarding this patient's physical therapy, please feel free to call me at [phone]. Thank you for the referral of this patient. Sincerely, Pj Carrizales, DPT, OCS, CSCS
== END 2018-10-27 19:00 | disposition home or self-care (01) ==
LOC: PT 16:00
PROVIDERS: Family Provider Family Medicine; PCP Family Medicine; Referring Provider Nurse Practitioner Family; Visit Provider Nurse Practitioner Family
DX: R42 Dizziness and giddiness (principal)
CPT/HCPCS: 97161; 97530

== ENCOUNTER → 2018-11-23 07:51 | Outpatient (CLI) | payer MEDICARE, BC, SELFPAY ==
--- NOTE | 2018-11-23 10:06 | NEURO_ITS ---
NCS and/or EMG Patient Report Ordering Doctor: Lilibeth Mcnally DATE OF SERVICE: 11/23/18 This is a bilateral lower extremity EMG and nerve conduction study performed on this 68-year-old female with leg weakness. She has also had paresthesias in a right lower extremity peroneal distribution which began after she had her right knee replaced in November 2017. Examination is unremarkable. Bilateral lower extremity sensory motor nerve conduction studies are performed. The common peroneal motor and tibial motor duction velocities are preserved bilaterally. The sural sensory responses are normal and the tibial and common peroneal F-wave latencies are normal. H reflex latencies bilaterally demonstrate low amplitude. Right lower extremity needle electromyography is performed. Muscles evaluate included the extensor digitorum brevis, abductor hallucis, medial gastrocnemius, anterior tibialis, vastus medialis and vastus lateralis muscles. All muscles demonstrated normal insertional activity however distal muscles did demonstrate large motor units with early recruitment. More proximal muscles demonstrated normal recruitment and motor unit amplitude as well as potential. Impression: Abnormal electrophysiologic study of the lower extremities consistent with mild length dependent polyneuropathy. 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 Dictated using [employer] software, not proofread
== END ==
PROVIDERS: Family Provider Family Medicine; PCP Family Medicine; Referring Provider Nurse Practitioner Family; Visit Provider Nurse Practitioner Family
DX: G62.9 Polyneuropathy, unspecified (principal); R20.0 Anesthesia of skin; R20.2 Paresthesia of skin
CPT/HCPCS: 95886; 95911

== ENCOUNTER → 2018-12-22 11:03 | Outpatient (CLI) | payer MEDICARE, BC, SELFPAY ==
--- NOTE | 2018-12-22 11:08 | BD_ITS ---
STUDY: DUAL ENERGY X-RAY ABSORPTIOMETRY / DXA REASON FOR EXAM: Female, 68 years old. The patient is postmenopausal. Loss of height. TECHNIQUE: Bone Mineral Density (BMD) measurements of lumbar spine and bilateral hips were obtained. COMPARISON: Comparison is made with prior study dated September 30, 2016. FINDINGS: Lumbar Spine (L1-L4): g/cm2 (0.894) / T-score (-2.4) / Z-score (-0.7) Findings are suggestive of osteopenia with a high fracture risk. Left Femur Total: g/cm2 (0.741) / T-score (-2.1) / Z-score (-0.7) Left Femoral Neck: g/cm2 (0.731) / T-score (-2.2) / Z-score (-0.6) Right Femur Total: g/cm2 (0.706) / T-score (-2.4) / Z-score (-1.0) Right Femoral Neck: g/cm2 (0.697) / T-score (-2.5) / Z-score (-0.8) The T-Scores on the most recent prior examination were: Lumbar Spine (L1-L4): There has been no change of bone density since the previous examination. Left Femur Total: which represents a worsening of 15.3%. Right Femur Total: which represents a worsening of 10.2%. BD/Dexa Bone Density Study IMPRESSION: The patient is considered osteoporotic as outlined below according to World [place] Organization (WHO) criteria with a high fracture risk. There has been worsening of bone density since the previous examination. Reference Information: The T-score is the number of standard deviations above or below the standard which is normal for young adults at their peak bone mineral density. The World Health Organization (WHO) interprets the T-scores as follows: Above -1 Normal bone density Between -1 and -2.5 Osteopenia Equal to / or below -2.5 Osteoporosis As a practical clinical guideline, osteopenia may be graded as follows: Mild -1 through -1.5 Moderate -1.6 through -2.0 Severe -2.1 through -2.4 The Z-score is the number of standard deviations above or below age-matched controls. A Z-score of less than -1.5 would be considered abnormal. References: 1. NIH Osteoporosis and Related Bone Diseases http://www.osteo.org 2. International Society for Clinical Densitometry http://www.iscd.org 3. National Osteoporosis Foundation http://www.nof.org Electronically Signed: Darin Stephenson, at 12:44 EST , Service support ,
== END ==
PROVIDERS: Family Provider Family Medicine; PCP Family Medicine; Referring Provider Nurse Practitioner Women's Health; Visit Provider Nurse Practitioner Women's Health
DX: Z78.0 Asymptomatic menopausal state (principal); M81.0 Age-related osteoporosis without current pathological fracture
CPT/HCPCS: 77080

== ENCOUNTER → 2018-12-23 14:47 | Outpatient (CLI) | payer MEDICARE, BC, SELFPAY ==
[2018-12-23 15:38] LABS: Erythrocyte Sedimentation Rate 12 mm/hr (0-30)
[2018-12-23 16:09] LABS: ALB/GLOB Ratio 1.1 RATIO (0.9-2.4); AST(SGOT) 13 U/L (15-37); Alanine Aminotransfer ALT/SGPT 17 U/L (13-56); Albumin, Serum 3.6 g/dL (3.2-5.0); Alkaline Phosphatase 64 U/L (45-117); Anion Gap 5 (5-15); BUN 25 mg/dL (7-18); BUN/Creat Ratio 35.6 RATIO (10-20); Bilirubin, Direct 0.08 mg/dL (0.00-0.30); CRP < 2.90 mg/L (0.0-3.0); Calcium,Total 8.9 mg/dL (8.5-10.1); Chloride 107 mmol/L (98-107); EST Glomerular Filtration Rate 88 mL/min (>60); Est Glom Filt Rate - Afr Amer 107 mL/min (>60); Globulin 3.2 g/dL (2.2-4.2); Glucose 92 mg/dL (74-106); Potassium 4.1 mmol/L (3.5-5.1); Protein, Total 6.8 g/dL (6.4-8.2); Sodium Level 139 mmol/L (136-145); Thyroid Stim Hormone (TSH) 1.46 uIU/mL (0.358-3.74); Vitamin B12 380 pg/mL (211-911)
[2018-12-28 20:07] LABS: PROEL- A/G Ratio 1.3 (0.7-1.7); PROEL- Albumin 3.6 g/dL (2.9-4.4); PROEL- Alpha-1 Globulin 0.3 g/dL (0.0-0.4); PROEL- Alpha-2 Globulin 0.8 g/dL (0.4-1.0); PROEL- Beta Globulin 0.8 g/dL (0.7-1.3); PROEL- Globulin, Total 2.8 g/dL (2.2-3.9); PROEL- TOTAL PROTEIN 6.4 g/dL (6.0-8.5); PROELU- Albumin, Urine 43.9 % (.); PROELU- Alpha-1-Globulin,Ur 5.9 % (.); PROELU- Alpha-2-Globulin,Ur 12.1 % (.); PROELU- Beta Globulin, Ur 19.7 % (.); PROELU- Gamma Globulin, Ur 18.5 % (.); Total Protein, Ur 13.9 mg/dL (Not Estab.)
== END ==
PROVIDERS: Family Provider Family Medicine; PCP Family Medicine; Referring Provider Nurse Practitioner Family; Visit Provider Nurse Practitioner Family
DX: G62.9 Polyneuropathy, unspecified (principal)
CPT/HCPCS: 36415; 80053; 82248; 82607; 84165; 84166; 84443; 85652; 86140

== ENCOUNTER → 2018-12-28 15:35 | Outpatient (CLI) | payer MEDICARE, BC, SELFPAY ==
--- NOTE | 2018-12-28 15:38 | BI_ITS ---
MAMMOGRAPHY - BILATERAL SCREENING REASON FOR EXAM: Female, 68 years old. Routine annual screening examination. PERTINENT HISTORY: Non-contributory. TECHNIQUE: Digital bilateral breast kajal (3D mammographic acquisition) in the CC and MLO projections. 2-D mediolateral oblique (MLO) and craniocaudad (CC) views of both breasts were obtained. CAD: Full Field Digital Mammography with Computer Added Detection was performed. COMPARISON: Comparison is made with prior examination dated December 18, 2017. FINDINGS: Breast Composition: The breasts are extremely dense, which lowers the sensitivity of mammography. There are no dominant masses or suspicious calcifications. No other significant abnormalities are identified. There has been no significant change since the prior study. BI/SCREEN MAMM (CAD) W/KAJAL BILAT IMPRESSION: Stable bilateral screening mammogram. Yearly follow-up mammogram recommended. (A) ASSESSMENT CATEGORY: BIRADS Category 1: Negative. A letter regarding these results will be sent to the patient by the facility within 30 days. Approximately 10% of breast cancers are not detected by mammography. A normal mammogram should not delay biopsy of a clinically suspicious abnormality. [id number] Electronically Signed: Darin Stephenson, at 8:05 EST , Service support ,
== END ==
PROVIDERS: Family Provider Family Medicine; PCP Family Medicine; Referring Provider Nurse Practitioner Women's Health; Visit Provider Nurse Practitioner Women's Health
DX: Z12.31 Encounter for screening mammogram for malignant neoplasm of breast (principal)
CPT/HCPCS: 77063; 77067

== ENCOUNTER → 2019-03-01 12:10 | Outpatient (CLI) | payer MEDICARE, BC, SELFPAY ==
[2019-03-01 14:03] LABS: Anion Gap 5 (5-15); BUN 27 mg/dL (7-18); BUN/Creat Ratio 37.5 RATIO (10-20); Chloride 109 mmol/L (98-107); Creatinine, Serum 0.72 mg/dL (0.55-1.02); EST Glomerular Filtration Rate 86 mL/min (>60); Est Glom Filt Rate - Afr Amer 103 mL/min (>60); Glucose 77 mg/dL (74-106); Magnesium 2.1 mg/dL (1.6-2.6); Phosphorus 3.1 mg/dL (2.5-4.9); Potassium 3.5 mmol/L (3.5-5.1); Sodium Level 143 mmol/L (136-145)
[2019-03-01 14:09] LABS: Vitamin D,25 Hydroxy 28.4 ng/mL (29.95-100.01)
[2019-03-01 14:18] LABS: PTHIN 49.2 pg/mL (18.4-80.1)
== END ==
LOC: MFPLAB 12:11
PROVIDERS: PCP Family Medicine; Visit Provider Family Medicine
DX: M81.0 Age-related osteoporosis without current pathological fracture (principal)
CPT/HCPCS: 36415; 80048; 82306; 82330; 83735; 83970; 84100

== ENCOUNTER → 2019-08-15 06:38 | Outpatient (CLI) | payer MEDICARE, BC, SELFPAY ==
--- NOTE | 2019-08-15 06:39 | ECHOD_ITS ---
Reason For Study: MITRAL VALVE PROLAPSE Procedure This was a 2D Doppler, Color Flow transthoracic echocardiogram. Exam performed in department. Left Ventricle Normal LV size. Left ventricular systolic function is normal. The estimated ejection fraction is 55 %. Stage 2 diastolic dysfunction. No regional wall motion abnormalities noted. Right Ventricle Normal RV size. Normal systolic function. Atria Normal left atrium. Normal right atrium. Mitral Valve Mild mitral valve prolapse. Tricuspid Valve Normal tricuspid valve. Mild (1+) tricuspid valve insufficiency. Pulmonary artery systolic pressure is 26 mmHg. Aortic Valve Normal aortic valve. Trisinus/trileaflet aortic valve. Pulmonic Valve Normal pulmonic valve. Great Vessels Normal aortic root. The pulmonary artery is normal size. Normal inferior vena cava. Pericardium/Pleural No pericardial effusion. MMode/2D Measurements & Calculations LVIDd: 4.1 cm IVSd: 0.70 cm Ao root diam: 2.8 cm LVIDs: 2.7 cm LVPWd: 0.81 cm RVDd: 3.2 cm FS: 35.0 % LAV(MOD-bp): 60.2 ml LA A4 area: 15.7 cm2 LA dimension(2D): 2.8 cm LAV(MOD-bp) Indexed: 35.7 ml/m2 LAV(MOD-sp2): 51.3 ml LAV(MOD-sp4): 47.3 ml RA A4 area: 14.3 cm2 Time Measurements MV dec time: 0.24 sec Doppler Measurements & Calculations MV E max slick: 93.5 cm/sec Lat Peak E' Slick: 8.6 cm/sec Med Peak E' Slick: 8.4 cm/sec MV A max slick: 66.7 cm/sec E/E' lat: 10.8 E/E' med: 11.1 MV E/A: 1.4 Ao V2 max: 104.0 cm/sec LV V1 max: 86.0 cm/sec PA V2 max: 78.3 cm/sec Ao max P.3 mmHg LV V1 max P.0 mmHg TR max slick: 234.9 cm/sec TR max P.1 mmHg Interpretation Summary Normal LV size. Left ventricular systolic function is normal. The estimated ejection fraction is 55 %. Stage 2 diastolic dysfunction. Mild mitral valve prolapse. Ordering Physician: Arvin Newell Referring Physician: Kenji Hollingsworth Performed By: Scarlet Chappell RDCS, RVT
--- NOTE | 2019-08-15 09:22 | STRESSREP ---
Stress Test Report Exercise myocardial perfusion stress test. 69-year-old lady with a history of chest pain pain Stress protocol: Resting EKG demonstrates normal sinus rhythm with a rate of 61 bpm normal intervals are noted resting blood pressure is 118/74 mmHg. The patient exercised according to regular Eddi protocol for total duration of 6 minutes. The maximum heart rate attained was 153 bpm which was 101% of maximum predicted heart rate the maximum workload was 7 metabolic equivalents. At rest there were no ST or T wave changes noted suggest ischemia at peak exercise upsloping ST changes noted approximately 1 mm in leads II, V5 and V6 were noted with no criteria for ischemia. No clinical angina was noted the test was terminated due to the target heart rate being achieved. The resting blood pressure was 118/74 mmHg with a peak blood pressure 164/80 mmHg. No clinical angina was noted. Myocardial perfusion protocol. 11.4 mCi of technetium 99m sestamibi was injected at rest. The patient exercised according to regular Eddi protocol at peak exercise 35.2 mCi of technetium 99m sestamibi was injected stress images were obtained stress and rest images were reconstructed and compared in the short axis vertical long horizontal long axis. Gated images were also obtained Perfusion SPECT analysis: Review of the stress images demonstrate normal uptake of tracer noted in all areas of myocardium the resting images similar demonstrate normal uptake of tracer noted in all areas of the myocardium. No reversibility is noted suggest ischemia no previous infarct is noted. Gated SPECT analysis: The gated ejection fraction is noted to be 77%. Conclusion: Normal exercise myocardial perfusion stress test at a moderate workload. Preserved ejection fraction. No clinical angina noted.
== END ==
PROVIDERS: PCP Family Medicine; Referring Provider Internal Medicine Cardiovascular Disease; Visit Provider Internal Medicine Cardiovascular Disease
DX: R06.00 Dyspnea, unspecified (principal); R00.2 Palpitations
CPT/HCPCS: 78452; 93017; 93225; 93226; 93306; A9500; A4216

== ENCOUNTER → 2019-11-24 | Outpatient (CLI) | payer MEDICARE, BC, SELFPAY | END | disposition home or self-care (01) | PROVIDERS: PCP Family Medicine; Referring Provider Nurse Practitioner Family; Visit Provider Nurse Practitioner Family | DX: R35.0 Frequency of micturition (principal) | CPT/HCPCS: 87086; 87088 ==

== ENCOUNTER → 2020-01-24 | Outpatient (CLI) | payer MEDICARE, BC, SELFPAY | END | disposition home or self-care (01) | LOC: LABSPEC 16:08 | PROVIDERS: PCP Family Medicine; Referring Provider Family Medicine; Visit Provider Family Medicine | DX: R10.9 Unspecified abdominal pain (principal) | CPT/HCPCS: 87086; 87088 ==

== ENCOUNTER → 2020-02-21 | Outpatient (CLI) | payer MEDICARE, BC, SELFPAY ==
[2020-02-21 11:08] VITALS: BMI 20.6
== END | disposition home or self-care (01) ==
LOC: LABSPEC 15:20
PROVIDERS: PCP Family Medicine; Referring Provider Nurse Practitioner Women's Health; Visit Provider Nurse Practitioner Women's Health
DX: N89.8 Other specified noninflammatory disorders of vagina (principal)
CPT/HCPCS: 87070; 87205

== ENCOUNTER → 2020-02-22 16:16 | Outpatient (CLI) | payer MEDICARE, BC, SELFPAY ==
[2020-02-21 11:08] VITALS: BMI 20.6
--- NOTE | 2020-02-22 16:18 | BI_ITS ---
MAMMOGRAPHY - BILATERAL SCREENING REASON FOR EXAM: Female, 69 years old. Routine annual screening examination. PERTINENT HISTORY: Non-contributory. TECHNIQUE: Digital bilateral breast kajal (3D mammographic acquisition) in the CC and MLO projections. 2-D mediolateral oblique (MLO) and craniocaudad (CC) views of both breasts were obtained. CAD: Full Field Digital Mammography with Computer Added Detection was performed. COMPARISON: Comparison is made with prior examination dated 12/28/2018 and 12/18/2017. FINDINGS: Breast Composition: The breasts are extremely dense, which lowers the sensitivity of mammography. There are no dominant masses or suspicious calcifications. No other significant abnormalities are identified. There has been no significant change since the prior study. BI/SCRN MAMM (CAD)W/KAJAL BILAT IMPRESSION: Stable bilateral screening mammogram. Yearly follow-up mammogram recommended. (A) ASSESSMENT CATEGORY: BIRADS Category 1: Negative. A letter regarding these results will be sent to the patient by the facility within 30 days. Approximately 10% of breast cancers are not detected by mammography. A normal mammogram should not delay biopsy of a clinically suspicious abnormality. [id number] Electronically Signed: Darin Stephenson, at 8:11 EST , Service support ,
== END ==
PROVIDERS: PCP Family Medicine; Referring Provider Obstetrics & Gynecology; Visit Provider Obstetrics & Gynecology
DX: Z12.31 Encounter for screening mammogram for malignant neoplasm of breast (principal)
CPT/HCPCS: 77063; 77067

== ENCOUNTER → 2020-02-24 12:28 | Outpatient (CLI) | payer MEDICARE, BC, SELFPAY ==
[2020-02-21 11:08] VITALS: BMI 20.6
--- NOTE | 2020-02-24 12:30 | US_ITS ---
STUDY: ULTRASOUND OF THE FEMALE PELVIS - COMPLETE REASON FOR EXAM: Female, 69 years old. PELVIC PAIN, CRAMPING AND PRESSURE THAT IT WORSE ON THE RIGHT SIDE. PT STATES A HX OF ENDOMETRIOSIS. LMP: Postmenopausal. TECHNIQUE: Transabdominal and Transvaginal TECHNICAL QUALITY: Adequate. COMPARISON: Comparison is made with prior study dated 10/01/2016. FINDINGS: The uterus is anteverted and is in a midline position. The uterus measures 4.4 cm x 4.5 cm x 2.6 cm. Normal uterine cervix. The endometrium measures 1.3 mm in thickness, and is hyperechoic. There is no demonstrated endometrial mass. There is no demonstrated myometrial mass. I.U.D. - The patient does not have an I.U.D. The right ovary is visualized. The right ovary measures 2.5 cm x 2.2 cm x 2.3 cm. There is no right ovarian cyst or ovarian mass. There is no visualized right adnexal mass or complex lesion. There is normal arterial and normal venous vascularity. The left ovary is non-visualized. There is minimal fluid in the cul-de-sac. The pre void volume of the bladder was 394 ml. Polycystic ovary disease: No. US/Transvaginal Non- IMPRESSION: Minimal fluid in the cul-de-sac. Electronically Signed: Darin Stephenson, at 14:37 EST , Service support ,
--- NOTE | 2020-02-24 12:30 | US_ITS ---
STUDY: ULTRASOUND OF THE FEMALE PELVIS - COMPLETE REASON FOR EXAM: Female, 69 years old. PELVIC PAIN, CRAMPING AND PRESSURE THAT IT WORSE ON THE RIGHT SIDE. PT STATES A HX OF ENDOMETRIOSIS. LMP: Postmenopausal. TECHNIQUE: Transabdominal and Transvaginal TECHNICAL QUALITY: Adequate. COMPARISON: Comparison is made with prior study dated 10/01/2016. FINDINGS: The uterus is anteverted and is in a midline position. The uterus measures 4.4 cm x 4.5 cm x 2.6 cm. Normal uterine cervix. The endometrium measures 1.3 mm in thickness, and is hyperechoic. There is no demonstrated endometrial mass. There is no demonstrated myometrial mass. I.U.D. - The patient does not have an I.U.D. The right ovary is visualized. The right ovary measures 2.5 cm x 2.2 cm x 2.3 cm. There is no right ovarian cyst or ovarian mass. There is no visualized right adnexal mass or complex lesion. There is normal arterial and normal venous vascularity. The left ovary is non-visualized. There is minimal fluid in the cul-de-sac. The pre void volume of the bladder was 394 ml. Polycystic ovary disease: No. US/Pelvic (Non ) IMPRESSION: Minimal fluid in the cul-de-sac. Electronically Signed: Darin Stephenson, at 14:37 EST , Service support ,
== END ==
PROVIDERS: PCP Family Medicine; Referring Provider Obstetrics & Gynecology; Visit Provider Obstetrics & Gynecology
DX: R10.2 Pelvic and perineal pain (principal); N83.8 Other noninflammatory disorders of ovary, fallopian tube and broad ligament
CPT/HCPCS: 76830; 76856

== ENCOUNTER → 2020-03-05 11:34 | Outpatient (CLI) | payer MEDICARE, BC, SELFPAY ==
[2020-02-21 11:08] VITALS: BMI 20.6
[2020-03-05 13:01] LABS: PTHIN 32.4 pg/mL (18.4-80.1)
[2020-03-05 13:05] LABS: Vitamin D,25 Hydroxy 46.7 ng/mL
[2020-03-05 13:10] LABS: Anion Gap 5 (5-15); BUN 29 mg/dL (7-18); BUN/Creat Ratio 32.5 RATIO (10-20); Calcium,Total 9.3 mg/dL (8.5-10.1); Chloride 106 mmol/L (98-107); Creatinine, Serum 0.89 mg/dL (0.55-1.02); EST Glomerular Filtration Rate 67 mL/min (>60); Est Glom Filt Rate - Afr Amer 80 mL/min (>60); Glucose 78 mg/dL (74-106); Phosphorus 3.6 mg/dL (2.5-4.9); Potassium 3.9 mmol/L (3.5-5.1); Sodium Level 142 mmol/L (136-145); Thyroid Stim Hormone (TSH) 2.46 uIU/mL (0.358-3.74)
== END ==
PROVIDERS: PCP Family Medicine; Visit Provider Family Medicine
DX: M81.0 Age-related osteoporosis without current pathological fracture (principal)
CPT/HCPCS: 36415; 80048; 82306; 83970; 84100; 84443

== ENCOUNTER 2020-03-28 09:38 | Outpatient (RCR) | payer MEDICARE, BC, SELFPAY ==
[2020-02-21 11:08] VITALS: BMI 20.6
== END 2020-03-28 23:59 ==
LOC: IMMUN 09:38
PROVIDERS: PCP Family Medicine; Visit Provider Family Medicine
DX: Z23 Encounter for immunization (principal)
CPT/HCPCS: 0011A; 0012A; 91301

== ENCOUNTER 2021-03-06 11:20 | Outpatient (CLI) | payer MEDICARE, BC, SELFPAY ==
--- NOTE | 2021-03-06 11:23 | RAD_ITS ---
STUDY: X-RAY - RIGHT FOOT CLINICAL: Female, 70 years old. Foot pain. TECHNIQUE: 3 view(s) of the foot. COMPARISON: None. FINDINGS: Osteopenia. Mild arthrosis of the tibiotalar and subtalar joints. Large inferior calcaneal spur. Mild arthrosis of the midfoot. Mild arthrosis of the TMT joints. Moderate arthrosis of the MTP and IP joints with hammertoe deformities. The soft tissue structures are unremarkable. RAD/Foot min 3 Views IMPRESSION: Osteopenia with large inferior calcaneal spur. Diffuse osteoarthritic changes. No acute abnormality, chondrocalcinosis, erosive changes or periostitis. Electronically Signed: Sergio West MD at 11:58 EST ,
== END 2021-03-06 23:59 | disposition short-term general hospital (02) ==
LOC: MTRAD 11:22
PROVIDERS: PCP Family Medicine; Referring Provider Family Medicine; Visit Provider Family Medicine
DX: M79.671 Pain in right foot (principal)
CPT/HCPCS: 73630

== ENCOUNTER 2021-04-02 08:46 | Outpatient (CLI) | payer MEDICARE, BC, SELFPAY ==
--- NOTE | 2021-04-02 08:48 | BI_ITS ---
MAMMOGRAPHY - BILATERAL SCREENING REASON FOR EXAM: Female, 70 years old. Routine annual screening examination. PERTINENT HISTORY: Non-contributory. TECHNIQUE: Digital bilateral breast kajal (3D mammographic acquisition) in the CC and MLO projections. 2-D mediolateral oblique (MLO) and craniocaudad (CC) views of both breasts were obtained. CAD: Full Field Digital Mammography with Computer Added Detection was performed. COMPARISON: Comparison is made with prior study dated 02/22/2020 and 12/28/2018. FINDINGS: Breast Composition: The breasts are extremely dense, which lowers the sensitivity of mammography. There are no dominant masses or suspicious calcifications. No other significant abnormalities are identified. There has been no significant change since the prior study. BI/SCRN MAMM (CAD)W/KAJAL BILAT IMPRESSION: Stable bilateral screening mammogram. Yearly follow-up mammogram recommended. (A) ASSESSMENT CATEGORY: BIRADS Category 1: Negative. A letter regarding these results will be sent to the patient by the facility within 30 days. Approximately 10% of breast cancers are not detected by mammography. A normal mammogram should not delay biopsy of a clinically suspicious abnormality. [id number] Electronically Signed: Darin Stephenson MD at 11:00 EST ,
--- NOTE | 2021-04-02 09:00 | BD_ITS ---
STUDY: DUAL ENERGY X-RAY ABSORPTIOMETRY / DXA REASON FOR EXAM: Female, 70 years old. Z780. The patient is postmenopausal. TECHNIQUE: Bone Mineral Density (BMD) measurements of lumbar spine and bilateral hips were obtained. COMPARISON: Comparison is made with prior study dated 12/22/2018. FINDINGS: Lumbar Spine (L1-L4): g/cm2 (0.775) / T-score (-2.5) / Z-score (-0.3) Findings are suggestive of osteoporosis with a high fracture risk. Left Femur Total: g/cm2 (0.712) / T-score (-1.9) / Z-score (-0.3) Left Femoral Neck: g/cm2 (0.545) / T-score (-2.7) / Z-score (-0.9) Right Femur Total: g/cm2 (0.684) / T-score (-2.1) / Z-score (-0.6) Right Femoral Neck: g/cm2 (0.587) / T-score (-2.4) / Z-score (-0.5) The T-Scores on the most recent prior examination were: Lumbar Spine (L1-L4): There has been worsening of bone density since the previous examination. Left Femur Total: which represents an improvement of 4.3%. Right Femur Total: which represents an improvement of 5.5%. BD/Dexa Bone Density Study IMPRESSION: The patient is considered osteoporotic as outlined below according to World [employer] (WHO) criteria with a high fracture risk. There has been improvement of bone density since the previous examination. Reference Information: The T-score is the number of standard deviations above or below the standard which is normal for young adults at their peak bone mineral density. The World Health Organization (WHO) interprets the T-scores as follows: Above -1 Normal bone density Between -1 and -2.5 Osteopenia Equal to / or below -2.5 Osteoporosis As a practical clinical guideline, osteopenia may be graded as follows: Mild -1 through -1.5 Moderate -1.6 through -2.0 Severe -2.1 through -2.4 The Z-score is the number of standard deviations above or below age-matched controls. A Z-score of less than -1.5 would be considered abnormal. References: 1. NIH Osteoporosis and Related Bone Diseases www osteo.org 2. International Society for Clinical Densitometry www iscd.org 3. National Osteoporosis Foundation www nof.org Electronically Signed: Darin Stephenson MD at 15:35 EST ,
== END 2021-04-02 23:59 | disposition home or self-care (01) ==
LOC: OPBI 08:47
PROVIDERS: PCP Family Medicine; Visit Provider Family Medicine
DX: Z12.31 Encounter for screening mammogram for malignant neoplasm of breast (principal); Z78.0 Asymptomatic menopausal state; M81.0 Age-related osteoporosis without current pathological fracture
CPT/HCPCS: 77063; 77067; 77080

== ENCOUNTER 2021-04-10 11:38 | Outpatient (CLI) | payer MEDICARE, BC, SELFPAY ==
[2021-04-10 15:56] LABS: PTHIN 44.2 pg/mL (18.4-80.1)
[2021-04-10 15:59] LABS: Vitamin D,25 Hydroxy 45.5 ng/mL
[2021-04-10 16:11] LABS: Anion Gap 4 (5-15); BUN 24 mg/dL (7-18); BUN/Creat Ratio 38.1 RATIO (10-20); Calcium,Total 8.9 mg/dL (8.5-10.1); Chloride 107 mmol/L (98-107); Cholesterol 192 mg/dL (200); Creatinine, Serum 0.63 mg/dL (0.55-1.02); EST Glomerular Filtration Rate 99 mL/min (>60); Est Glom Filt Rate - Afr Amer 120 mL/min (>60); Glucose 89 mg/dL (74-106); High Density Lipoprotein 67 mg/dL; Potassium 4.1 mmol/L (3.5-5.1); Sodium Level 140 mmol/L (136-145); Thyroid Stim Hormone (TSH) 2.51 uIU/mL (0.358-3.74); Triglycerides 78 mg/dL; Very Low Density Lipoprotein 16 mg/dL (5-40)
== END 2021-04-10 23:59 | disposition home or self-care (01) ==
LOC: MFPLAB 11:38
PROVIDERS: PCP Family Medicine; Referring Provider Family Medicine; Visit Provider Family Medicine
DX: Z13.220 Encounter for screening for lipoid disorders (principal); M81.0 Age-related osteoporosis without current pathological fracture
CPT/HCPCS: 36415; 80048; 80061; 82306; 83970; 84443

== ENCOUNTER → 2022-01-07 | Outpatient (CLI) | payer MEDICARE, BC, SELFPAY ==
--- NOTE | 2022-01-07 07:54 | US_ITS ---
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 TECHNICAL QUALITY: Adequate. COMPARISON: None. FINDINGS: Liver: The liver measures 13.4 cm. There is normal echogenicity of the liver. The bile ducts are within normal limits. There is hepatic color flow. The direction of portal flow is hepatopetal. There is no demonstrated mass lesion. Gallbladder: Normal distended gallbladder. The gallbladder wall measures 1.0 mm. There is a negative sonographic Madrid''s sign. There is no pericholecystic fluid. There are no gallstones. Common Bile Duct (C.B.D.): The common bile duct measures 5.6 mm. Pancreas: There is diffuse atrophy of the pancreas. There is normal echogenicity of the pancreas. There is no demonstrated pancreatic mass or cyst. Spleen: Normal size of the spleen. The spleen measures 10.4 cm x 3.5 cm x 4.6 cm. Right Kidney: Normal size of the right kidney. The right kidney measures 9.7 cm x 4.9 cm x 3.8 cm. Normal renal cortex. The right cortex measures 1.2 cm. There is no demonstrated renal mass or cyst. There is no right hydronephrosis. Left Kidney: Normal size of the left kidney. The left kidney measures 11.3 cm x 3.6 cm x 4 cm. Normal renal cortex. The left cortex measures 1.8 cm. There is no demonstrated renal mass or cyst. There is no left hydronephrosis. Aorta: Unremarkable. I.V.C.: The IVC is patent. There is no ascites. US/Abdomen Complete IMPRESSION: No acute abnormality is seen. Pancreatic atrophy. Electronically Signed: Darin Stephenson MD at 13:25 EST ,
== END | disposition home or self-care (01) ==
LOC: US 07:50
PROVIDERS: PCP Family Medicine; Referring Provider Family Medicine; Visit Provider Family Medicine
DX: R11.2 Nausea with vomiting, unspecified (principal)
CPT/HCPCS: 76700

== ENCOUNTER → 2022-01-14 | Outpatient (CLI) | payer MEDICARE, BC, SELFPAY ==
[2022-01-17 16:41] LABS: H. PYLORI STOOL AG Negative (Negative)
[2022-01-24 17:34] LABS: Pancreatic Elastase, Fecal 225 (>200)
== END | disposition home or self-care (01) ==
LOC: LABSPEC 14:55
PROVIDERS: PCP Family Medicine; Referring Provider Family Medicine; Visit Provider Family Medicine
DX: R11.2 Nausea with vomiting, unspecified (principal)
CPT/HCPCS: 82653; 87338

== ENCOUNTER 2022-01-21 11:00 | Outpatient (RCR) | payer MEDICARE, BC, SELFPAY ==
--- NOTE | 2022-01-06 10:34 | HP.PTEVAL_ITS ---
Patient's Visit Information CLARK MEJIA is a 71 year old F referred to Physical Therapy by Dr. Pj Davison MD with a diagnosis of R TOS, shoulder pain. Date of Evaluation: 01/03/22 Physical Therapist: Samir Kitchen DPT - Visit Plan Frequency: 2x /Week Duration: 4 Weeks Plan: Start with pec minor stretching, scalenes stretching, mid trap and rhomboid strengthening. Pt. to complete I for 2 weeks and follow up with PT. - Subjective Pt. is here today for her initial evaluation with diagnosis of TOS and R shoulder pain. Pt. reports having increased N/T at night and when she wakes up. She does not have much pain, but more the N/T in her R UE and hands, seems to be all of her fingers. Pt. has issues when she sleeps on her R side. Not as much when on her L side. Pt. does not seem to have much issues. She does not have much pain or weakness in her RUE. Pt. has not had an xrays of her shoulder or neck. Pt. reports no neck pain. Pt. did have some questions about pillow she should be using. Pt. - Objective POSTURE: Pt. has sight slouched posture, slight FH posture. Rounded shoulders. PALPATION: Pt. has no pain with palpation throughout cervical spine and R shoulder/scapular region. NEURO: Pt. has normal sensation throughout RUE to light and sharp touch. Normal DTR of BUEs. SPECIAL TESTING: ISABEL test- + on R side, + hillman test, - adsons test, + baldo test, - millitary brace test. ROM: CERVICAL SPINE: full except min loss with extension- no pain no N/T. B shoulder full motion no symptoms. MMT: Pt. has 5/5 strength throughout BUEs and cervical spine. Pt. has no symptoms with testing. - Special Tests C/S Radiculapathy - Left Upper limb tension test: Negative C/S Radiculapathy - Right Upper limb tension test: Negative C/S Radiculapathy - Left Spurlings: Negative C/S Radiculapathy - Right Spurlings: Negative C/S Radiculapathy - Left Cervical distraction: Negative C/S Radiculapathy - Right Cervical distraction: Negative C/S Radiculapathy - Left Relief test: Negative C/S Radiculapathy - Right Relief test: Negative C/S Radiculapathy - Valsalva: Negative R Shoulder Drop Sign - IS Test: Negative R Shoulder Empty Can - SS: Negative R Shoulder Belly Press - SupScap: Negative R Shoulder Neer - Impingement: Negative R Shoulder Samaniego Manuel - Impingement: Negative R Shoulder Biceps Load Test - Labrum: Negative R Shoulder Speeds Test - Labrum/Biceps: Negative - Balance/Special Test Scores Quick DASH Score: 18.1800 - Goals Goal 1:: LTG: Pt. to be I with HEP for stretching and strengthening of her pec and scapular structures. Goal Time Frame: 4-6 Weeks Goal 2:: STG: Pt. to have decreased occurrences of symptoms after sleeping. Goal Time Frame: 2 Weeks Goal 3:: LTG: Pt. to sleep throughout the night without N/T in RUE. Goal Time Frame: 4-6 Weeks Goal 4:: LTG: Pt. to have negative Isabel test, and negative Baldo test, indicating decreased presence of TOS in R shoulder. Goal Time Frame: 4-6 Weeks - Rehabilitation Potential Physical Therapy Diagnosis: Pt. has signs and symptoms consistent with R TOS. Pt. has N/T with sleeping and + special testing suggesting TOS with tightness from pec minor. I want her to work on stretching of this structure and strengthening of her posture scapular structures to avoid flexed posturs. Rehabilitation Potential: Excellent - Anticipated Interventions Patient/Client Instruction: Educate patient on: Condition, Plan of Care, Risk Factors, Benefits of Fitness Program For the Purpose of:: To foster healthy habits, To improve decision making, To facilitate caregiver knowledge, To improve self management, To prevent re- injury, To improve ability to perform tasks related to life management Therapeutic Exercise to Include: Strength training, Balance training, Coordination, Body mechanics, Postural training, Passive ROM, Active ROM, Scapular Strength/Stabilization For the Purpose of:: To decrease pain, To increase ROM, To improve nutrient delivery to tissue, To increase oxygenation perfusion, To improve health of tissue, To decrease soft tissue restriction, To increase flexibility/ROM Thank you for the opportunity to evaluate your patient. For Medicare and Medicare HMO plans, please review the plan of care and approve it. It will need to be FAXED BACK to us at [phone] for Medicare purposes. For Medicare only, by signing this I certify the plan of care. Please let me know if there are questions or concerns regarding this plan of care. Physician Signature: Date:
--- NOTE | 2022-01-21 11:25 | HP.PTREVAL_ITS ---
Dr. Pj Davison MD, It has been my pleasure to treat CLARK MEJIA over the last 2 visits for R TOS, shoulder pain. Please see the progress note below for an update on the physical therapy plan of care! Subjective: Pt. reports overall doing much better. She has not been having any symptoms. Pt. pleased. Objective/Function: ROM: Pt. has full cervical and B shoulder ROM without increase in issues. MMT: 5/5 throughout. No pain with testing. - Isabel, - hyper abduction, - baldo test and - adson. Pt. is doing much better. Plan Plan: Pt. is to continue with doing exercises on her own. I will leave the case open for a few weeks. If I do not hear from her I will DC back to physician. Balance/Gait/Functional tests - Balance/Special Test Scores Quick DASH Score: 18.1800 Goals Goal 1:: LTG: Pt. to be I with HEP for stretching and strengthening of her pec and scapular structures. Goal Time Frame: 4-6 Weeks Goal Progress: Goal Met Goal 2:: STG: Pt. to have decreased occurrences of symptoms after sleeping. Goal Time Frame: 2 Weeks Goal Progress: Goal Met Goal 3:: LTG: Pt. to sleep throughout the night without N/T in RUE. Goal Time Frame: 4-6 Weeks Goal Progress: Goal Met Goal 4:: LTG: Pt. to have negative Isabel test, and negative Baldo test, indicating decreased presence of TOS in R shoulder. Goal Time Frame: 4-6 Weeks Goal Progress: Goal Met Anticipated Interventions Patient/Client Instruction: Educate patient on: Condition, Plan of Care, Risk Factors, Benefits of Fitness Program For the Purpose of:: To foster healthy habits, To improve decision making, To facilitate caregiver knowledge, To improve self management, To prevent re-in jury, To improve ability to perform tasks related to life management Therapeutic Exercise to Include: Strength training, Balance training, Coordination, Body mechanics, Postural training, Passive ROM, Active ROM, Scapular Strength/Stabilization For the Purpose of:: To decrease pain, To increase ROM, To improve nutrient delivery to tissue, To increase oxygenation perfusion, To improve health of tissue, To decrease soft tissue restriction, To increase flexibility/ROM Please do not hesitate to contact me at [phone] by phone or Fax: if you have questions or concerns regarding this new plan of care! Sincerely, ROLANDO GaonaT
== END 2022-01-21 19:00 | disposition home or self-care (01) ==
LOC: PT 11:00
PROVIDERS: PCP Family Medicine; Referring Provider Family Medicine; Visit Provider Family Medicine
DX: M79.601 Pain in right arm (principal); G54.0 Brachial plexus disorders; M67.813 Other specified disorders of tendon, right shoulder
CPT/HCPCS: 97110; 97161; 97530

== ENCOUNTER → 2022-04-15 | Outpatient (CLI) | payer MEDICARE, BC, SELFPAY ==
--- NOTE | 2022-04-15 10:49 | BI_ITS ---
MAMMOGRAPHY - BILATERAL SCREENING REASON FOR EXAM: Female, 71 years old. Routine annual screening examination. PERTINENT HISTORY: Non-contributory. TECHNIQUE: Digital bilateral breast kajal (3D mammographic acquisition) in the CC and MLO projections. 2-D mediolateral oblique (MLO) and craniocaudad (CC) views of both breasts were obtained. CAD: Full Field Digital Mammography with Computer Added Detection was performed. COMPARISON: Comparison is made with prior study dated April 02, 2021 and February 22, 2020. FINDINGS: Breast Composition: The breasts are extremely dense, which lowers the sensitivity of mammography. There are no dominant masses or suspicious calcifications. No other significant abnormalities are identified. There has been no significant change since the prior study. BI/SCRN MAMM (CAD)W/KAJAL BILAT IMPRESSION: Stable bilateral screening mammogram. Yearly follow-up mammogram recommended. (A) ASSESSMENT CATEGORY: BIRADS Category 1: Negative. A letter regarding these results will be sent to the patient by the facility within 30 days. Approximately 10% of breast cancers are not detected by mammography. A normal mammogram should not delay biopsy of a clinically suspicious abnormality. [id number] Electronically Signed: Darin Stephenson MD at 12:04 EST ,
== END | disposition home or self-care (01) ==
LOC: OPBI 10:46
PROVIDERS: PCP Family Medicine; Visit Provider Nurse Practitioner Women's Health
DX: Z12.31 Encounter for screening mammogram for malignant neoplasm of breast (principal)
CPT/HCPCS: 77063; 77067

== ENCOUNTER → 2023-04-21 | Outpatient (CLI) | payer MEDICARE, BC, SELFPAY ==
[2023-04-21 15:34] LABS: Absolute Lymphocyte Count 1.02 X10^3/uL (0.83-4.51); Absolute Neutrophil Count 1.6 X10^3/uL (2.0-7.7); Basophil# 0.02 X10^3/uL; Basophil% 0.7 % (0-1); Eosinophil# 0.06 X10^3/uL; Hematocrit 40.2 % (37-47); Hemoglobin 12.6 g/dL (12.0-15.0); Lymphocyte # 1.02 X10^3/ul (0.83-4.51); Mean Corp Hgb Conc 31.3 g/dL (32-36); Mean Corpuscular Volume 92.6 fL (81-99); Mean Platelet Vol. 9.9 fl (6.2-12.0); Monocyte# 0.29 X10^3/uL; Monocyte% 9.7 % (0-10); NRBC Flagged by Analyzer 0 % (0-5); Neutrophil # 1.61 X10^3/uL (2.7-7.7); Neutrophil % 53.6 % (47-70); Platelet Count 160 K/mm3 (150-450); RBC Distribution Width CV 13.4 % (11.6-14.6); RBC Distribution Width SD 45.8 fl (35.1-43.9); Red Blood Count 4.34 M/mm3 (4.2-5.4)
[2023-04-21 18:16] LABS: PTHIN 43.1 pg/mL (18.4-80.1)
[2023-04-21 18:32] LABS: Vitamin B12 385 pg/mL (211-911); Vitamin D,25 Hydroxy 45.8 ng/mL
[2023-04-21 20:20] LABS: ALB/GLOB Ratio 1.1 RATIO (0.9-2.4); AST(SGOT) 14 U/L (15-37); Alanine Aminotransfer ALT/SGPT 17 U/L (13-56); Albumin, Serum 3.6 g/dL (3.2-5.0); Alkaline Phosphatase 60 U/L (45-117); Anion Gap 6 (5-15); BUN 32 mg/dL (7-18); BUN/Creat Ratio 37.4 RATIO (10-20); Chloride 107 mmol/L (98-107); Cholesterol 182 mg/dL (200); Creatinine, Serum 0.86 mg/dL (0.55-1.02); EST Glomerular Filtration Rate 69 mL/min (>60); Est Glom Filt Rate - Afr Amer 84 mL/min (>60); Free T3 2.4 pg/mL (2.18-3.98); Globulin 3.2 g/dL (2.2-4.2); Glucose 86 mg/dL (74-106); High Density Lipoprotein 73 mg/dL; Potassium 3.6 mmol/L (3.5-5.1); Protein, Total 6.8 g/dL (6.4-8.2); Sodium Level 140 mmol/L (136-145); T4 Free Direct 1.14 ng/dL (0.76-1.46); T4 Total, Thyroxin 10.2 ug/dL (4.8-13.9); Thyroid Stim Hormone (TSH) 1.89 uIU/mL (0.358-3.74); Triglycerides 81 mg/dL; Very Low Density Lipoprotein 16 mg/dL (5-40)
[2023-04-21 21:39] LABS: Hemoglobin A1c 5.3 % (3.8-5.6)
== END | disposition home or self-care (01) ==
LOC: BFHLAB 10:46
PROVIDERS: PCP Family Medicine; Visit Provider Family Medicine
DX: I10 Essential (primary) hypertension (principal); R73.03 Prediabetes; M81.0 Age-related osteoporosis without current pathological fracture; G62.9 Polyneuropathy, unspecified
CPT/HCPCS: 36415; 80053; 80061; 82306; 82607; 83036; 83970; 84436; 84439; 84443; 84480; 84481; 85025

== ENCOUNTER → 2023-04-28 | Outpatient (CLI) | payer MEDICARE, BC, SELFPAY ==
--- NOTE | 2023-04-28 13:00 | BI_ITS ---
MAMMOGRAPHY - BILATERAL SCREENING REASON FOR EXAM: Female, 72 years old. Routine annual screening examination. PERTINENT HISTORY: Non-contributory. TECHNIQUE: Digital bilateral breast kajal (3D mammographic acquisition) in the CC and MLO projections. 2-D mediolateral oblique (MLO) and craniocaudad (CC) views of both breasts were obtained. CAD: Full Field Digital Mammography with Computer Added Detection was performed. COMPARISON: Comparison is made with prior study dated April 15, 2022 and January 30, 2022. FINDINGS: Breast Composition: The breasts are extremely dense, which lowers the sensitivity of mammography. There are no dominant masses or suspicious calcifications. No other significant abnormalities are identified. There has been no significant change since the prior study. BI/SCRN MAMM (CAD)W/KAJAL BILAT IMPRESSION: Stable bilateral screening mammogram. Yearly follow-up mammogram recommended. (A) ASSESSMENT CATEGORY: BIRADS Category 1: Negative. A letter regarding these results will be sent to the patient by the facility within 30 days. Approximately 10% of breast cancers are not detected by mammography. A normal mammogram should not delay biopsy of a clinically suspicious abnormality. [id number] Electronically Signed: Darin Stephenson MD at 14:39 EDT ,
== END | disposition home or self-care (01) ==
LOC: OPBI 13:00
PROVIDERS: PCP Family Medicine; Referring Provider Nurse Practitioner Women's Health; Visit Provider Nurse Practitioner Women's Health
DX: Z12.31 Encounter for screening mammogram for malignant neoplasm of breast (principal)
CPT/HCPCS: 77063; 77067

== ENCOUNTER → 2023-06-23 | Outpatient (CLI) | payer MEDICARE, BC, SELFPAY ==
--- NOTE | 2023-06-23 10:30 | BD_ITS ---
STUDY: DUAL ENERGY X-RAY ABSORPTIOMETRY / DXA REASON FOR EXAM: Female, 72 years old. M810 TECHNIQUE: Bone Mineral Density (BMD) measurements of lumbar spine and bilateral hips were obtained. COMPARISON: Comparison is made with prior study dated April 02, 2021. FINDINGS: Lumbar Spine (L1-L4): g/cm2 (0.840) / T-score (-1.9) / Z-score (0.4) Findings are suggestive of osteopenia with a moderate fracture risk. Left Femur Total: g/cm2 (0.683) / T-score (-2.1) / Z-score (-0.5) Left Femoral Neck: g/cm2 (0.562) / T-score (-2.6) / Z-score (-0.6) Right Femur Total: g/cm2 (0.694) / T-score (-2.0) / Z-score (-0.4) Right Femoral Neck: g/cm2 (0.604) / T-score (-2.2) / Z-score (-0.2) The T-Scores on the most recent prior examination were: Lumbar Spine (L1-L4): There has been improvement of bone density since the previous examination. Left Femur Total: which represents a worsening of 4.1%. Right Femur Total: which represents an improvement of 1.4%. BD/Dexa Bone Density Study IMPRESSION: The patient is considered osteoporotic as outlined below according to World [employer] (WHO) criteria with a high fracture risk. There has been improvement of bone density since the previous examination. Reference Information: The T-score is the number of standard deviations above or below the standard which is normal for young adults at their peak bone mineral density. The World Health Organization (WHO) interprets the T-scores as follows: Above -1 Normal bone density Between -1 and -2.5 Osteopenia Equal to / or below -2.5 Osteoporosis As a practical clinical guideline, osteopenia may be graded as follows: Mild -1 through -1.5 Moderate -1.6 through -2.0 Severe -2.1 through -2.4 The Z-score is the number of standard deviations above or below age-matched controls. A Z-score of less than -1.5 would be considered abnormal. References: 1. NIH Osteoporosis and Related Bone Diseases www osteo.org 2. International Society for Clinical Densitometry www iscd.org 3. National Osteoporosis Foundation www nof.org Electronically Signed: Darin Stephenson MD at 15:38 EDT ,
== END | disposition home or self-care (01) ==
LOC: OPBD 10:25
PROVIDERS: PCP Family Medicine; Referring Provider Family Medicine; Visit Provider Family Medicine
DX: M81.0 Age-related osteoporosis without current pathological fracture (principal)
CPT/HCPCS: 77080

== ENCOUNTER → 2024-04-14 | Outpatient (CLI) | payer MEDICARE, BC, SELFPAY ==
[2024-04-14 14:42] LABS: Absolute Neutrophil Count 1.7 X10^3/uL (2.0-7.7); Basophil# 0.02 X10^3/uL; Basophil% 0.7 % (0-1); Eosinophil# 0.04 X10^3/uL; Eosinophils% 1.4 % (0-5); Hematocrit 39.7 % (37-47); Hemoglobin 12.9 g/dL (12.0-15.0); Lymphocyte % 30.5 % (19-41); Mean Corp Hgb Conc 32.5 g/dL (32-36); Mean Corpuscular Volume 89.2 fL (81-99); Mean Platelet Vol. 10.1 fl (6.2-12.0); Monocyte# 0.32 X10^3/uL; Monocyte% 10.8 % (0-10); NRBC Flagged by Analyzer 0 % (0-5); Neutrophil # 1.66 X10^3/uL (2.7-7.7); Neutrophil % 56.3 % (47-70); Platelet Count 141 K/mm3 (150-450); RBC Distribution Width SD 42.5 fl (35.1-43.9); Red Blood Count 4.45 M/mm3 (4.2-5.4)
[2024-04-14 14:47] LABS: Hemoglobin A1c 5.6 % (<=5.6)
[2024-04-14 15:06] LABS: ALB/GLOB Ratio 1.7 RATIO (0.9-2.4); AST(SGOT) 19 U/L (<=31); Alanine Aminotransfer ALT/SGPT 11 U/L (<=34); Albumin, Serum 4.1 g/dL (3.4-4.8); Alkaline Phosphatase 68 U/L (35-104); Anion Gap 11 (5-15); BUN 24 mg/dL (4-19); BUN/Creat Ratio 35.9 RATIO (10-20); Calcium,Total 9.1 mg/dL (7.6-11.0); Carbon Dioxide 23.4 mmol/L (21.0-32.0); Chloride 105 mmol/L (98-108); Cholesterol 191 mg/dL (<=200); Creatinine, Serum 0.67 mg/dL (0.70-1.20); EST Glomerular Filtration Rate 92 (>60); Globulin 2.5 g/dL (2.2-4.2); Glucose 92 mg/dL (70-99); High Density Lipoprotein 73 mg/dL; Low Density Lipoprotein Calc. 107 mg/dL; Potassium 4.1 mmol/L (3.3-5.1); Protein, Total 6.6 g/dL (5.9-8.4); Sodium Level 140 mmol/L (133-145); Total Bilirubin 0.56 mg/dL (0.00-1.30); Triglycerides 57 mg/dL; Very Low Density Lipoprotein 11 mg/dL (5-40); cholesterol:hdl ratio screen 2.61
[2024-04-14 15:09] LABS: Vitamin D,25 Hydroxy 43.6 ng/mL (30-100)
== END | disposition home or self-care (01) ==
LOC: MFPLAB 12:19
PROVIDERS: PCP Family Medicine; Referring Provider Family Medicine; Visit Provider Family Medicine
DX: G62.9 Polyneuropathy, unspecified (principal); M81.0 Age-related osteoporosis without current pathological fracture; R79.9 Abnormal finding of blood chemistry, unspecified; E78.5 Hyperlipidemia, unspecified; R73.01 Impaired fasting glucose
CPT/HCPCS: 36415; 80053; 80061; 82306; 83036; 85025

== ENCOUNTER → 2024-04-29 | Outpatient (CLI) | payer MEDICARE, BC, SELFPAY ==
--- NOTE | 2024-04-29 10:31 | BI_ITS ---
EXAM: SCRN MAMM (CAD)W/KAJAL BILAT 04/29/2024 CLINICAL HISTORY: F, Age 73 y/o , SCREENING. No family history of breast cancer. TECHNIQUE: Bilateral screening digital breast tomosynthesis with 2D and 3D images. Computer aided detection. COMPARISON: 04/28/2023, 04/15/2022 FINDINGS: TISSUE DENSITY: The breast tissue is heterogenously dense, which may obscure small masses. The mammogram demonstrates that the patient has dense breasts. Supplemental screening with whole breast ultrasound or MRI may be considered for further evaluation. Bilateral Breast Mammographic Findings: No significant masses, calcifications or other abnormalities are identified. BI/SCRN MAMM (CAD)W/KAJAL BILAT IMPRESSION: There is no evidence of malignancy in either breast. OVERALL FINAL ASSESSMENT: BIRADS 1 NEGATIVE. RECOMMENDATION: Routine annual follow-up in 1 Year A letter with findings and recommendations will be mailed to the patient. Reading Location: [id number]
== END | disposition home or self-care (01) ==
LOC: OPBI 10:29
PROVIDERS: PCP Family Medicine; Referring Provider Family Medicine; Visit Provider Family Medicine
DX: Z12.31 Encounter for screening mammogram for malignant neoplasm of breast (principal)
CPT/HCPCS: 77063; 77067